=== PATIENT | female | born 1985 | race African-American/Black ===

== ENCOUNTER → 2016-06-17 | Outpatient (CLI) | payer OTHER ==
[~2016-06-17] MED LIST: LANS15CA PO; PREN1TAB26 PO
--- NOTE | 2016-06-17 11:00 | RAD ---
Chest, 2 views, 06/17/2016: History: Chest pain, URI Comparison is made to a study from 05/16/2011. The heart size and pulmonary vascularity are normal. There is a calcified granuloma in the right lung. No acute infiltrates are seen. There is no evidence of pleural fluid. IMPRESSION: No acute cardiopulmonary abnormality is detected.
== END | disposition home or self-care (01) ==
LOC: RAD 10:26
PROVIDERS: ATTEND Surgery
DX: R07.9 Chest pain, unspecified (principal)
CPT/HCPCS: 71020

== ENCOUNTER → 2018-04-15 | Outpatient (CLI) | payer OTHER ==
--- NOTE | 2018-04-15 09:39 | KCIC ---
EXAM: MRI RIGHT KNEE DATE: 04/15/2018 8:45 AM CLINICAL INDICATION: Right knee pain. Swelling and popping sensation for 7 years. COMPARISON: Knee radiographs 10/08/2007 TECHNIQUE: Multiplanar, multisequence MR imaging of the right knee was performed without IV contrast. FINDINGS: No significant knee joint effusion. No Goode's cyst is seen although a synovial cyst is seen arising from the posterior joint line measuring 1.7 x 0.7 cm immediately subjacent to the popliteal vessels. Regions of near full-thickness chondral thinning at the central weightbearing surface of the medial femoral condyle. Suspected intermittent full-thickness fissuring. Mild thinning of the lateral compartment cartilage without discrete full-thickness fissuring. Intermittent chondral thinning of the lateral patellar facet without discrete full-thickness defect. The ACL and PCL are intact. The MCL, fibular collateral ligament, biceps femoris and IT band are intact. The popliteus tendon is normal in signal and morphology, intact. Neutral patellar tracking. Extensor mechanism is intact. Medial meniscus: Although no discrete meniscal tear is identified, there is a complex multiseptated parameniscal cyst measuring 1.3 x 1 cm along the posterior horn and root of the medial meniscus. Occult meniscal tear is not excluded. Lateral meniscus: Intact No evidence of fracture or AVN. Tricompartmental osteophytes are seen. IMPRESSION: 1. A small synovial cyst is seen arising from the posterior joint line immediately subjacent to the popliteal vessels measuring 1.7 cm. 2. Although no medial or lateral meniscal tear is identified, a small multiseptated parameniscal cyst is seen posteriorly along the posterior horn and root of the medial meniscus which may suggest occult meniscal tear. Alternatively a soft tissue ganglion arising from the posterior joint line/capsular may have similar appearance. 3. 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 Electronically signed by: Jason Joshi MD (04/15/2018 9:35 AM) [facility]
== END | disposition home or self-care (01) ==
LOC: KCIC MRI 08:21
PROVIDERS: ATTEND Orthopaedic Surgery
DX: M71.38 Other bursal cyst, other site (principal); M94.261 Chondromalacia, right knee; M25.761 Osteophyte, right knee
CPT/HCPCS: 73721

== ENCOUNTER 2019-02-13 03:56 | Emergency (ER) | payer MEDICAID, OTHER ==
[~2019-02-13] VITALS: Ht 167.6 cm; Wt 129.3 kg
[2019-02-13 04:26] LABS: BILIRUBIN,URINE NEGATIVE (NEG); CLARITY,URINE CLEAR; COLOR,URINE YELLOW; NITRITE,URINE NEGATIVE (NEG); PROTEIN,URINE NEGATIVE (NEG-TRACE)
[2019-02-13] MEDS ORDERED: IV NORMAL SALINE 1000ML BAG 1,000 ML IV SCH (04:30)
[2019-02-13] MEDS ORDERED: DIPHTH,PERTUSS(ACELL),TET TOX 0.5 ML DISP.SYRIN. VAX IM ONE (04:30)
[2019-02-13 04:33] LABS: BARBITURATES NEG (NEG); BENZODIAZEPINES NEG (NEG); CANNABINOIDS NEG (NEG); COCAINE NEG (NEG); METHADONE NEG (NEG); OPIATES NEG (NEG); PHENCYCLIDINE NEG (NEG)
[2019-02-13 04:43] LABS: AMPHETAMINE/METHAMPHETAMINE NEG (NEG)
[2019-02-13 04:47] VITALS: BP 110/58
[2019-02-13 04:48] LABS: BACTERIA,URINE FEW /HPF (0-FEW); SQUAMOUS EPITHELIAL CELL,UR FEW /LPF
[2019-02-13 05:03] LABS: BASO # 0.1 x10^3/uL (0.0-0.2); BASO % 1 % (0-3); EOS # 0.4 x10^3/uL (0.0-0.7); EOS % 5 % (0-3); HEMATOCRIT 40.2 % (36.0-47.0); HEMOGLOBIN 13.7 g/dL (12.0-15.5); LYMPH # 1.6 x10^3/uL (1.0-4.8); LYMPH % 20 % (24-48); MEAN CORPUSCULAR HEMOGLOBIN 29 pg (25-35); MEAN CORPUSCULAR HGB CONC 34 g/dL (31-37); MEAN CORPUSCULAR VOLUME 83 fL (79-100); MONO # 0.5 x10^3/uL (0.0-1.1); MONO % 6 % (0-9); NEUT # 5.6 x10^3/uL (1.8-7.7); NEUT % 69 % (31-73); PLATELET COUNT 279 x10^3/uL (140-400); RED BLOOD COUNT 4.81 x10^6/uL (3.50-5.40); RED CELL DISTRIBUTION WIDTH 14.3 % (11.5-14.5); WHITE BLOOD COUNT 8.1 x10^3/uL (4.0-11.0)
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
[2019-02-13 05:18] LABS: PROTHROMBIN TIME PATIENT 13.7 SEC (11.7-14.0)
[2019-02-13 05:27] LABS: CALCIUM 9.5 mg/dL (8.5-10.1); CREATININE 0.8 mg/dL (0.6-1.0); GFR 98.8; POTASSIUM 3.6 mmol/L (3.5-5.1)
[2019-02-13 05:32] LABS: ALBUMIN 3.6 g/dL (3.4-5.0); DIRECT BILIRUBIN 0.1 mg/dL (0.0-0.2); MAGNESIUM 2.1 mg/dL (1.8-2.4); TOTAL BILIRUBIN 0.2 mg/dL (0.2-1.0); TOTAL PROTEIN 8.6 g/dL (6.4-8.2)
[2019-02-13] MEDS ORDERED: CEPH-264 PO (06:04)
[2019-02-13] MEDS ORDERED: NAPR-683 PO (06:04)
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
== END 2019-02-13 06:35 | disposition home or self-care (01) ==
LOC: ER 03:56
DX: S01.511A Laceration without foreign body of lip, initial encounter (principal); F10.129 Alcohol abuse with intoxication, unspecified; Y90.6 Blood alcohol level of 120-199 mg/100 ml; N39.0 Urinary tract infection, site not specified; E66.01 Morbid (severe) obesity due to excess calories; Z68.42 Body mass index [BMI] 45.0-49.9, adult; Y04.8XXA Assault by other bodily force, initial encounter; Y93.89 Activity, other specified; Y99.8 Other external cause status; Y92.89 Other specified places as the place of occurrence of the external cause
CPT/HCPCS: 12011; 36415; 70450; 70486; 72125; 80048; 80076; 80307; 81001; 81025; 83735; 85025; 85610; 87086; 90471; 90715; 99285; G0480; J7030

== ENCOUNTER 2019-11-09 08:00 | Emergency (ER) | payer MEDICAID ==
[~2019-11-09] VITALS: Ht 165.1 cm; Wt 100.0 kg
[~2019-11-09 08:00] MED LIST changes: +CEPH-264 PO; +NAPR-683 PO
[2019-11-09 08:16] VITALS: BP 141/98
[2019-11-09] MEDS ORDERED: BENZ100C PO (08:27)
--- NOTE | 2019-11-09 08:27 | PHYS DOC ---
Past Medical History Past Medical History: No Pertinent History Smoking Status: Current Every Day Smoker Alcohol Use: Occasionally Drug Use: None General Adult EDM: Chief Complaint: COUGH HPI: HPI: Patient is a 34-year-old female smoker who presents with cough and congestion. She states that her boss sent her home from work because she was coughing. She denies any fever chills or sweats. She states that she is coughing up some white stuff. She has inhalers and prednisone at home that she has not been using. [] Review of Systems: Review of Systems: Constitutional: Denies fever or chills. [] Eyes: Denies change in visual acuity. [] HENT: Denies nasal congestion or sore throat. [] Respiratory: Per HPI [] Cardiovascular: Denies chest pain or edema. [] GI: Denies abdominal pain, nausea, vomiting, bloody stools or diarrhea. [] : Denies dysuria. [] Musculoskeletal: Denies back pain or joint pain. [] Integument: Denies rash. [] Neurologic: Denies headache, focal weakness or sensory changes. [] Endocrine: Denies polyuria or polydipsia. [] Lymphatic: Denies swollen glands. [] Psychiatric: Denies depression or anxiety. [] Heart Score: Risk Factors: Risk Factors: DM, Current or recent (<one month) smoker, HTN, HLP, family history of CAD, obesity. Risk Scores: Score 0 - 3: 2.5% MACE over next 6 weeks - Discharge Home Score 4 - 6: 20.3% MACE over next 6 weeks - Admit for Clinical Observation Score 7 - 10: 72.7% MACE over next 6 weeks - Early Invasive Strategies Allergies: Allergies: Allergies Coded Allergies Type Severity Reaction Last Updated Verified No Known Drug Allergies 04/26/13 No Physical Exam: PE: Constitutional: Well developed, well nourished, no acute distress, non-toxic appearance. [] HENT: Normocephalic, atraumatic, bilateral external ears normal, oropharynx moist, no oral exudates, nose normal. [] Eyes: PERRLA, EOMI, conjunctiva normal, no discharge. [] Neck: Normal range of motion, no tenderness, supple, no stridor. [] Cardiovascular:Heart rate regular rhythm, no murmur [] Lungs & Thorax: Bilateral breath sounds clear to auscultation [] Abdomen: Bowel sounds normal, soft, no tenderness, no masses, no pulsatile masses. [] Skin: Warm, dry, no erythema, no rash. [] Back: No tenderness, no CVA tenderness. [] Extremities: No tenderness, no cyanosis, no clubbing, ROM intact, no edema. [] Neurologic: Alert and oriented X 3, normal motor function, normal sensory function, no focal deficits noted. [] Psychologic: Affect normal, judgement normal, mood normal. [] EKG: EKG: [] Radiology/Procedures: Radiology/Procedures: [] Course & Med Decision Making: Course & Med Decision Making Pertinent Labs and Imaging studies reviewed. (See chart for details) [] Dragon Disclaimer: Dragon Disclaimer: This electronic medical record was generated, in whole or in part, using a voice recognition dictation system. Departure Departure Impression: Primary Impression: Viral URI with cough Disposition: 01 HOME, SELF-CARE Condition: STABLE Referrals: UNKNOWN PCP NAME (PCP) Patient Instructions: Upper Respiratory Infection, Adult Additional Instructions: Take your albuterol inhaler and prednisone as previously prescribed Scripts Benzonatate (TESSALON PERLE) 100 Mg Capsule 1 CAP PO TID, #21 CAP Prov: LINDA FAUST DO 11/09/19 Justicifation of Admission Dx: Justifications for Admission: Justification of Admission Dx: LINDA Dao DO Nov 09, 2019 08:27
== END 2019-11-09 08:36 | disposition home or self-care (01) ==
LOC: ER 08:00
DX: J06.9 Acute upper respiratory infection, unspecified (principal); F17.200 Nicotine dependence, unspecified, uncomplicated
CPT/HCPCS: 99283

== ENCOUNTER → 2020-03-13 | Outpatient (CLI) | payer MEDICAID ==
[~2020-03-13] MED LIST changes: +ALBU2.5V8 INH; +BENZ100C PO; +FERR325T14 PO; +IBUP-1027 PO; +OMEP40CA45 PO
--- NOTE | 2020-03-15 09:22 | NUR ---
IP: Informed pt of positive COVID test and need to quarantine for 14 days. Procedure will be cancelled. Pt verbalized understanding.
== END ==
LOC: LAB 13:04
PROVIDERS: ATTEND Obstetrics & Gynecology
DX: U07.1 COVID-19 (principal)
CPT/HCPCS: U0003

== ENCOUNTER 2020-12-06 20:03 | Emergency (ER) | payer MEDICAID ==
[~2020-12-06] VITALS: Ht 167.6 cm; Wt 120.0 kg
[~2020-12-06 20:03] MED LIST changes: -OMEP40CA45 PO; +OMEP40CA7 PO
[2020-12-06 21:57] VITALS: BP 127/71
[2020-12-06] MEDS ORDERED: ALBUTEROL SULFATE 2.5 MG/3 ML NEBU. NEB ONE (22:15)
[2020-12-06] MEDS ORDERED: DEXAMETHASONE 4 MG TABLET PO ONE (22:15)
--- NOTE | 2020-12-06 22:20 | PHYS DOC ---
Past Medical History Past Medical History: No Pertinent History Past Surgical History: Hysterectomy Additional Past Surgical Histo: R hand, L salpigooophoerectomy Smoking Status: Current Every Day Smoker Alcohol Use: Occasionally Drug Use: None General Adult EDM: Chief Complaint: MULTIPLE COMPLAINTS HPI: HPI: Patient is a 35 year old female who presents with 1 day of nausea, vomiting, diarrhea, fever, shortness of breath and body aches. She does have a history of asthma and is a smoker. She also has a history of a hysterectomy. She has had both of her [employer] vaccines since September. She states she has plenty of inhaler and nebulized treatments at home and does not need a prescription. Patient denies chest pain, dizziness, headache, vision change, numbness or tingling, focal weakness, cough. She denies any pain at this time. Review of Systems: Review of Systems: Constitutional: + fever or chills. [] Eyes: Denies change in visual acuity. [] HENT: Denies nasal congestion or sore throat. [] Respiratory: + cough or +shortness of breath. [] Cardiovascular: Denies chest pain or edema. [] GI: Denies abdominal pain, +nausea, +vomiting, denies bloody stools or +diarrhea. [] : Denies dysuria. [] Musculoskeletal: Denies back pain or joint pain. [] Integument: Denies rash. [] Neurologic: Denies headache, focal weakness or sensory changes. [] Endocrine: Denies polyuria or polydipsia. [] Lymphatic: Denies swollen glands. [] Psychiatric: Denies depression or anxiety. [] Heart Score: C/O Chest Pain: No Risk Factors: Risk Factors: DM, Current or recent (<one month) smoker, HTN, HLP, family history of CAD, obesity. Risk Scores: Score 0 - 3: 2.5% MACE over next 6 weeks - Discharge Home Score 4 - 6: 20.3% MACE over next 6 weeks - Admit for Clinical Observation Score 7 - 10: 72.7% MACE over next 6 weeks - Early Invasive Strategies Current Medications: Current Medications Medications (Trade) Dose Ordered Sig/Jorge Alberto Start Time Stop Time Status Last Admin Dose Admin Dexamethasone (Decadron) 10 mg 1X ONCE 12/06/20 22:15 12/06/20 22:16 Allergies: Allergies: Allergies Coded Allergies Type Severity Reaction Last Updated Verified No Known Drug Allergies 03/14/20 No Physical Exam: PE: Constitutional: Well developed, well nourished, no acute distress, non-toxic appearance. [] HENT: Normocephalic, atraumatic, bilateral external ears normal, oropharynx moist, no oral exudates, nose normal. [] Eyes: PERRLA, EOMI, conjunctiva normal, no discharge. [] Neck: Normal range of motion, no tenderness, supple, no stridor. [] Cardiovascular:Heart rate regular rhythm, no murmur [] Lungs & Thorax: Bilateral upper breath sounds clear and lower diminished to auscultation [] Abdomen: Bowel sounds normal, soft, no tenderness, no masses, no pulsatile masses. [] Skin: Warm, dry, no erythema, no rash. [] Back: No tenderness, no CVA tenderness. [] Extremities: No tenderness, no cyanosis, no clubbing, ROM intact, no edema. [] Neurologic: Alert and oriented X 3, normal motor function, normal sensory function, no focal deficits noted. [] Psychologic: Affect normal, judgement normal, mood normal. [] Current Patient Data: Vital Signs: Vital Signs Date Time Temp Pulse Resp B/P (MAP) Pulse Ox O2 Delivery O2 Flow Rate FiO2 12/06/20 21:57 98.9 92 12 127/71 (112) 98 Room Air 98.9 EKG: EKG: [] Radiology/Procedures: Radiology/Procedures: [] Impression: [id number] [place] [address] IMAGING REPORT Signed PATIENT: KATINA MANN ACCOUNT: [id number] : 1985 LOCATION: ER AGE: 35 SEX: F EXAM STATUS: REG ER ORD. PHYSICIAN: NAHUM ORTIZ APRN REASON: soa, fever PROCEDURE: PORTABLE CHEST 1V AP chest. HISTORY: Short of air, fever AP view was taken of the chest. Heart is normal in size. There is no effusion. There are no acute infiltrates. IMPRESSION: 1. No acute infiltrates. Electronically signed by: Jaxon Nguyen MD (12/06/2020 10:19 PM) [facility] DICTATED and SIGNED BY: JAXON NGUYEN MD DATE: 12/06/20 [id number] 0 Course & Med Decision Making: Course & Med Decision Making Pertinent Labs and Imaging studies reviewed. (See chart for details) COVID-19 CRITERIA: The patient was evaluated during the global COVID-19 pandemic, and that diagnosis was suspected/considered upon their initial presentation. Their evaluation, treatment and testing was consistent with current guidelines for patients who present with complaints or symptoms that may be related to COVID-19. See HPI. Alert and oriented x4. Ambulatory steady gait. Speaks in full clear sentences. Lungs are clear in upper lobes and diminished in lower lobes. She is in no respiratory distress. Vital signs within normal limits. Skin pink warm and dry. Patient is given dexamethasone in the ED. She is also given a breathing treatment. 2300: Patient signed out to Dr Avina [] Ab Disclaimer: Ab Disclaimer: This electronic medical record was generated, in whole or in part, using a voice recognition dictation system. Departure Departure Impression: Primary Impression: Shortness of breath Disposition: 01 HOME / SELF CARE / HOMELESS Condition: STABLE Referrals: REFUGIO HARRELL-C (PCP) Patient Instructions: Asthma, Adult, Asthma, F.L.A.R.E. Additional Instructions: Follow-up with your primary care provider soon as possible. Drink plenty of fluids. Take ibuprofen or Tylenol for any pain or fever. Rest. If you begin to have severe shortness of breath or chest pain no return to the emergency room. Scripts Methylprednisolone (MEDROL) 4 Mg Tab.ds.pk 1 PKG PO UD, #1 PKG Prov: NAHUM ORTIZ [employer] 12/06/20 COVID-19 Patient Risks: Age 65 or older: No Sign of co-morbidity: Yes Exp to person + for COVID: No Exp to PUI: No Travel from affected area: No Lower respiratory symptoms: Yes Fever: Yes Other: Yes (N/V/D) PPE Use: Full PPE with N95 mask or PAPR: Yes NAHUM ORTIZ [employer] Dec 06, 2020 22:20
--- NOTE | 2020-12-06 22:22 | RAD ---
AP chest. HISTORY: Short of air, fever AP view was taken of the chest. Heart is normal in size. There is no effusion. There are no acute inf iltrates. IMPRESSION: 1. No acute infiltrates. Electronically signed by: Jaxon Nguyen MD (12/06/2020 10:19 PM) [facility]
[2020-12-06] MEDS ORDERED: METH4TAB2 PO (22:47)
[2020-12-06 23:21] LABS: BILIRUBIN,URINE NEGATIVE (NEG); CLARITY,URINE CLEAR; COLOR,URINE AMBER; NITRITE,URINE NEGATIVE (NEG); PH,URINE 6.5 (<5.0-8.0); PROTEIN,URINE NEGATIVE (NEG-TRACE)
[2020-12-06 23:29] LABS: RBC,URINE OCC /HPF (0-2); WBC,URINE OCC /HPF (0-4)
[2020-12-06 23:30] LABS: BACTERIA,URINE 0 /HPF (0-FEW)
--- NOTE | 2020-12-07 18:00 | NUR ---
IP: Informed pt of negative covid test. Pt verbalized understanding.
== END 2020-12-06 23:58 | disposition home or self-care (01) ==
LOC: ER 20:03
DX: R06.02 Shortness of breath (principal); Z20.822 Contact with and (suspected) exposure to COVID-19; R11.2 Nausea with vomiting, unspecified; R19.7 Diarrhea, unspecified; R50.9 Fever, unspecified; J45.909 Unspecified asthma, uncomplicated; F17.200 Nicotine dependence, unspecified, uncomplicated; Z90.710 Acquired absence of both cervix and uterus
CPT/HCPCS: 71045; 81001; 87426; 94640; 99284; J7613; U0003; U0005

== ENCOUNTER 2021-03-20 19:56 | Emergency (ER) | payer MEDICAID, OTHER ==
[~2021-03-20] VITALS: Ht 165.1 cm; Wt 107.0 kg
[~2021-03-20 19:56] MED LIST changes: +METH4TAB2 PO
[2021-03-20] MEDS ORDERED: MORPHINE SULFATE 10 MG/ML VIAL. IM ONE (21:30)
[2021-03-20] MEDS ORDERED: ONDANSETRON ODT 4 MG TAB.RAPDIS. PO ONE (21:30)
--- NOTE | 2021-03-20 22:10 | RAD ---
Exam: CT of abdomen and pelvis without contrast INDICATION: Abdominal pain, umbilical hernia TECHNIQUE: Sequential axial images through the abdomen and pelvis obtained without IV contrast. Sagit jah and coronal reformatted images were reconstructed from the axial data and reviewed. Exposure: One or more of the following in the visualized dose reduction techniques were utilized for this examination: 1. Automated exposure control 2. Adjustment of the MA and/or KV according to patient size 3. Use of iterative of reconstructive technique Comparisons: None FINDINGS: Heart size is normal. No pericardial effusion. Visualized lung bases are clear. No pleural effusion. Evaluation of solid organs limited secondary to noncontrast technique. Liver, spleen, pancreas, gallbladder and adrenals are unremarkable. No perinephric inflammation or hydronephrosis. No renal or ureteral calculi are identified. Bladder is partially distended and not well evaluated. Uterus is absent. No abnormal adnexal mass. Large and small bowel are unremarkable. Appendix is normal. No free intra-abdominal air fluid. No obs truction. Abdominal aorta has a normal course and caliber. No enlarged intra-abdominal lymph nodes are identified. No suspicious osseous lesions or acute fractures. Fat-containing umbilical hernia which measures 4.5 cm in diameter with a 1.8 cm opening at the umbilicus. IMPRESSION: Fat-containing umbilical hernia. No herniated bowel or evidence for obstruction. Electronically signed by: Tari Murillo MD (03/20/2021 10:07 PM) [facility]
[2021-03-20] MEDS ORDERED: HYDR-2761 PO (23:00)
--- NOTE | 2021-03-20 23:01 | PHYS DOC ---
Past Medical History Past Medical History: No Pertinent History Additional Past Medical Histor: COVID-19 (03/2020),UMBILLICAL HERNIA Past Surgical History: Hysterectomy Additional Past Surgical Histo: R hand, L salpigooophoerectomy Smoking Status: Never Smoker Alcohol Use: None Drug Use: None General Adult EDM: Chief Complaint: ABDOMINAL PAIN HPI: HPI: Patient is a 36 year old female with a history of abdominal hernia who presents the ED today complaining of 8 out of 10 pain around the umbilicus. Patient states pain has been going on for the whole day. She states she usually has pain to the area but today is worse than normal. Patient describes the pain as throbbing and constant today. She states she was diagnosed with hernia in September. Denies anything relieving her pain. States the pain is exacerbated on touching the abdomen. Reports normal bowel movement today. Review of Systems: Review of Systems: Constitutional: Denies fever or chills. [] GI: Reports pain around the umbilicus, denies nausea, vomiting, bloody stools or diarrhea. [] : Denies dysuria. [] Musculoskeletal: Denies back pain or joint pain. [] Integument: Denies rash. [] Neurologic: Denies headache, focal weakness or sensory changes. [] Psychiatric: Denies depression or anxiety. [] Heart Score: C/O Chest Pain: N/A Risk Factors: Risk Factors: DM, Current or recent (<one month) smoker, HTN, HLP, family history of CAD, obesity. Risk Scores: Score 0 - 3: 2.5% MACE over next 6 weeks - Discharge Home Score 4 - 6: 20.3% MACE over next 6 weeks - Admit for Clinical Observation Score 7 - 10: 72.7% MACE over next 6 weeks - Early Invasive Strategies Current Medications: Current Medications Medications (Trade) Dose Ordered Sig/[facility] Start Time Stop Time Status Last Admin Dose Admin Morphine Sulfate (Morphine Sulfate) 5 mg 1X ONCE 03/20/21 21:30 03/20/21 21:31 DC 03/20/21 22:04 5 MG Ondansetron HCl (Zofran Odt) 4 mg 1X ONCE 03/20/21 21:30 03/20/21 21:31 DC 03/20/21 22:03 4 MG Allergies: Allergies: Allergies Coded Allergies Type Severity Reaction Last Updated Verified No Known Drug Allergies 03/14/20 No Physical Exam: PE: Constitutional: Well developed, well nourished, no acute distress, non-toxic appearance. [] Abdomen: Obese abdomen. Tenderness around the umbilicus. Bowel sounds normal, soft, no masses, no pulsatile masses. [] Skin: Warm, dry, no erythema, no rash. [] Back: No tenderness, no CVA tenderness. [] Extremities: No tenderness, no cyanosis, no clubbing, ROM intact, no edema. [] Neurologic: Alert and oriented X 3, normal motor function, normal sensory function, no focal deficits noted. [] Psychologic: Affect normal, judgement normal, mood normal. [] Current Patient Data: Vital Signs: Vital Signs Date Time Temp Pulse Resp B/P (MAP) Pulse Ox O2 Delivery O2 Flow Rate FiO2 03/20/21 22:04 18 98 Room Air 03/20/21 21:10 97.7 74 122/56 (78) 97.7 EKG: EKG: [] Radiology/Procedures: Radiology/Procedures: []PROCEDURE: CT ABDOMEN PELVIS WO CONTRAST Exam: CT of abdomen and pelvis without contrast INDICATION: Abdominal pain, umbilical hernia TECHNIQUE: Sequential axial images through the abdomen and pelvis obtained without IV contrast. Sagittal and coronal reformatted images were reconstructed from the axial data and reviewed. Exposure: One or more of the following in the visualized dose reduction techniques were utilized for this examination: 1. Automated exposure control 2. Adjustment of the MA and/or KV according to patient size 3. Use of iterative of reconstructive technique Comparisons: None FINDINGS: Heart size is normal. No pericardial effusion. Visualized lung bases are clear. No pleural effusion. Evaluation of solid organs limited secondary to noncontrast technique. Liver, spleen, pancreas, gallbladder and adrenals are unremarkable. No perinephric inflammation or hydronephrosis. No renal or ureteral calculi are identified. Bladder is partially distended and not well evaluated. Uterus is absent. No abnormal adnexal mass. Large and small bowel are unremarkable. Appendix is normal. No free intra- abdominal air fluid. No obstruction. Abdominal aorta has a normal course and caliber. No enlarged intra-abdominal lymph nodes are identified. No suspicious osseous lesions or acute fractures. Fat-containing umbilical niki ia which measures 4.5 cm in diameter with a 1.8 cm opening at the umbilicus. IMPRESSION: Fat-containing umbilical hernia. No herniated bowel or evidence for obstruction. Electronically signed by: Tari Mei MD (03/20/2021 10:07 PM) [facility] DICTATED and SIGNED BY: TARI MEI MD DATE: 03/20/21 [id number] 0 Course & Med Decision Making: Course & Med Decision Making Pertinent Labs and Imaging studies reviewed. (See chart for details) This is a 36-year-old female patient presenting to the ED today with pain around her umbilicus, history of umbilical hernia. CT of the abdomen and pelvis is negative for any acute findings, noted for non incarcerated umbilical hernia. Discharge to home. Follow-up with general surgery. Dragon Disclaimer: Dragon Disclaimer: This electronic medical record was generated, in whole or in part, using a voice recognition dictation system. Departure Departure Impression: Primary Impression: Umbilical hernia Qualified Codes: K42.9 - Umbilical hernia without obstruction or gangrene Disposition: HOME / SELF CARE / HOMELESS Condition: STABLE Referrals: REFUGIO HARRELL EVALUATOR-C (PCP) CHRISTINA ESPINOZA MD Please follow-up with your own doctor and the provided general surgeon as soon as you can Patient Instructions: Hernia Additional Instructions: You have an umbilical hernia that is not incarcerated. We encourage you to follow-up with the provided general surgeon as soon as you can. Scripts Hydrocodone Bit/Acetaminophen (HYDROCODONE-APAP 5-325 ) 1 Tab Tablet 1 TAB PO PRN Q6HRS PRN for PAIN, #14 TAB 0 Refills Prov: ALLIE FOWLER APRN 03/20/21 ALLIE FOWLER APRN Mar 20, 2021 23:00
[2021-03-20 23:11] VITALS: BP 108/67
== END 2021-03-20 23:19 | disposition home or self-care (01) ==
LOC: ER 19:56
DX: K42.9 Umbilical hernia without obstruction or gangrene (principal)
CPT/HCPCS: 74176; 96372; 99285; J2270

== ENCOUNTER 2021-04-18 11:33 | Day surgery (SDC) | payer OTHER, MEDICAID ==
[~2021-04-18] VITALS: Ht 166.4 cm; Wt 108.0 kg
[~2021-04-18 11:33] MED LIST changes: +HYDR-2761 PO; +IV RINGERS,LACTATED 1000ML 1,000 ML IV SCH; +PROCHLORPERAZINE 10 MG/2 ML VIAL. IVP PRN; +fentaNYL PF VIAL 100 MCG/2 ML VIAL IVP PRN
[2021-04-18 12:05] VITALS: BP 101/66
[2021-04-18] MEDS ORDERED: DEXAMETHASONE SOD PHOS 4 MG/ML VIAL ONE (12:13)
[2021-04-18] MEDS ORDERED: ONDANSETRON PF 4 MG/2 ML VIAL. ONE (12:13)
[2021-04-18] MEDS ORDERED: PROPOFOL 10 MG/ML (20ML) VIAL. IV ONE (12:13)
[2021-04-18] MEDS ORDERED: ROCURONIUM 100 MG/10 ML VIAL. ONE (12:14)
[2021-04-18] MEDS ORDERED: fentaNYL PF VIAL 100 MCG/2 ML VIAL ONE ×2 (12:14→15:43)
[2021-04-18] MEDS ORDERED: MIDAZOLAM HCL/PF 2 MG/2 ML VIAL. ONE (12:15)
[2021-04-18] MEDS ORDERED: LIDOCAINE 2% PF 5 ML VIAL. ONE (12:23)
[2021-04-18] MEDS ORDERED: SUCCINYLCHOLINE 200 MG/10 ML VIAL. ONE (12:24)
[2021-04-18] MEDS ORDERED: DEXAMETHASONE SOD PHOS 20 MG/5 ML VIAL. ONE (12:36)
[2021-04-18] MEDS ORDERED: KETOROLAC 30 MG/ML VIAL. ONE (13:59)
[2021-04-18] MEDS ORDERED: HYDROmorphone 2 MG/ML VIAL ONE ×2 (14:17→16:06)
[2021-04-18] MEDS ORDERED: NEOSTIGMINE METHYLSULFATE 5 MG/5 ML SYRINGE. ONE (14:55)
[2021-04-18] MEDS ORDERED: GLYCOPYRROLATE 1 MG/5 ML VIAL. ONE (14:56)
[2021-04-18] MEDS ORDERED: OXYC-325 PO (15:21)
--- NOTE | 2021-04-18 15:23 | DISCH ---
DISCHARGE INSTRUCTIONS Condition on Discharge Condition on Discharge: Stable Activity After Discharge Activity Instructions for Disc: Other, see below (no lifting over 20 lbs X 6 weeks) Diet after Discharge Diet after Discharge: Regular Wound Incision Care Wound/Incision Care: Other, see below (keep dressing clean and dry X 72 hours, may then remove and shower) Follow-Up Follow up with: Dr Vital in office in 2 weeks, call for appointment [phone] ANUJA VITAL MD Apr 18, 2021 15:23
--- NOTE | 2021-04-18 15:27 | PDOC4 ---
Operative Note Operative Note Operative Note: Preoperative Diagnosis: Ventral hernia Postoperative Diagnosis: Same Procedure: Ventral hernia with mesh Surgeon: Darrel Site Safety Representative: ASAEL Castillo Jacob Wiepen MS4 Anesthesia: General EBL: 20 mL Specimen: None Drains: None Complications: None Indication: The patient is a 36-year-old female who is referred with a ventral hernia. She was offered surgical repair. The risks of surgery were discussed which include bleeding, infection, recurrence, pain, visceral injury, anesthetic risk, mesh reaction, potential need for additional surgery procedure. She understands and would like to proceed. Description: The patient was taken the operating room and placed supine on the operating table. General anesthesia was performed. The abdomen was prepped with ChloraPrep and draped with sterile towels, sheets, and an Ioban. A curved infraumbilical incision was made in the skin with a scalpel. Cautery dissection was carried down to the fascia. The umbilical tissue was elevated off the fascia exposing a moderate-sized hernia defect. This appeared to be related to a prior ventral incision from a laparoscopic trocar. There was some adherent omentum to the hernia sac which had to be mobilized. There was an adjacent slit defect also which was included with the main hernia by dividing the fascial b ridge. A large Ventralex ST mesh was then placed intraperitoneally and held up against the abdominal wall. The mesh was sutured to the abdominal wall with 0 Prolene's placed at the 12, 3, 6, 9:00 positions. The fascial edges were approximated over the mesh with 0 Prolene. The umbilicus was secured back to the fascia with 0 Vicryl. The subcutaneous tissue was closed with 3-0 Vicryl. The skin was closed with 4-0 Monocryl and infiltrated with half percent Marcaine with epinephrine. Steri-Strips and a sterile dressing were applied. The patient tolerated the procedure well and was sent to the recovery room in stable condition. At the end of the case all counts were correct. ANUJA VITAL MD Apr 18, 2021 15:27
[2021-04-18] MEDS ORDERED: MORPHINE SULFATE 2 MG/ML INJ. ONE (15:43)
[2021-04-18] MEDS: MORPHINE SULFATE 2 MG/ML INJ. IVP PRN ×2 (15:47→15:56)
[2021-04-18] MEDS: fentaNYL PF VIAL 100 MCG/2 ML VIAL IVP PRN ×2 (15:47→15:55)
[2021-04-18] MEDS ORDERED: oxyCODONE/APAP 5/325 1 TAB TABLET PO ONE ×2 (16:00)
[2021-04-18] MEDS ORDERED: PROCHLORPERAZINE 10 MG/2 ML VIAL. ONE (16:06)
[2021-04-18] MEDS: HYDROmorphone 2 MG/ML VIAL IVP PRN ×3 (16:10→16:30)
[2021-04-18 16:55] VITALS: BP 107/61
== END 2021-04-18 17:25 | disposition home or self-care (01) ==
LOC: SURG 11:33
PROVIDERS: ATTEND Surgery
DX: K43.9 Ventral hernia without obstruction or gangrene (principal); E66.9 Obesity, unspecified; J45.909 Unspecified asthma, uncomplicated; K21.9 Gastro-esophageal reflux disease without esophagitis; D64.9 Anemia, unspecified; F17.210 Nicotine dependence, cigarettes, uncomplicated; Z90.710 Acquired absence of both cervix and uterus; Z98.890 Other specified postprocedural states; Z79.899 Other long term (current) drug therapy
CPT/HCPCS: 49560; 49568; A4364; A4930; A6402; C1781; J0330; J0690; J0780; J1100; J1170; J1885; J2250; J2270; J2405; J2704; J2710; J3010; J3490; A4452

== ENCOUNTER 2021-09-04 22:35 | Inpatient (IN) | payer MEDICAID, OTHER ==
[~2021-09-04] VITALS: Ht 165.1 cm; Wt 107.2 kg
[~2021-09-04 22:35] MED LIST changes: -IV RINGERS,LACTATED 1000ML 1,000 ML IV SCH; +OXYC-325 PO; -PROCHLORPERAZINE 10 MG/2 ML VIAL. IVP PRN; -fentaNYL PF VIAL 100 MCG/2 ML VIAL IVP PRN
[2021-09-04] MEDS ORDERED: IV NORMAL SALINE 1000ML BAG 1,000 ML IV ONE (23:30)
[2021-09-04] MEDS ORDERED: ONDANSETRON PF 4 MG/2 ML VIAL. IVP ONE (23:30)
[2021-09-04] MEDS ORDERED: fentaNYL PF VIAL 100 MCG/2 ML VIAL IVP ONE (23:30)
[2021-09-04 23:52] LABS: BASO # 0.1 x10^3/uL (0.0-0.2); BASO % 1 % (0-3); EOS # 0.4 x10^3/uL (0.0-0.7); EOS % 5 % (0-3); HEMATOCRIT 38.7 % (36.0-47.0); HEMOGLOBIN 13.3 g/dL (12.0-15.5); LYMPH # 2.3 x10^3/uL (1.0-4.8); LYMPH % 25 % (24-48); MEAN CORPUSCULAR HEMOGLOBIN 27 pg (25-35); MEAN CORPUSCULAR HGB CONC 34 g/dL (31-37); MEAN CORPUSCULAR VOLUME 79 fL (79-100); MONO # 0.6 x10^3/uL (0.0-1.1); MONO % 7 % (0-9); NEUT # 5.6 x10^3/uL (1.8-7.7); NEUT % 62 % (31-73); PLATELET COUNT 266 x10^3/uL (140-400); RED BLOOD COUNT 4.88 x10^6/uL (3.50-5.40); RED CELL DISTRIBUTION WIDTH 15.1 % (11.5-14.5)
--- NOTE | 2021-09-04 23:57 | RAD ---
EXAM: ULTRASOUND ABDOMEN LIMITED CLINICAL HISTORY: Gallstones. Retrocardiac abdominal pain. COMPARISON: CT abdomen March 20, 2021 Findings: Limited visualization of the pancreas, aorta and IVC due to bowel gas shadowing. The visual ized segments of the structures are normal. Normal liver echogenicity isoechoic to renal parenchyma. No liver mass. Hepatopedal portal vein blood flow. There may be hepatomegaly the right hepatic lobe has a length of 20.9 cm. Nonmobile gallstone at the gallbladder neck. Gallbladder wall is mildly thickened measuring 0.4 cm. There is a positive s onographic Bacon's sign documented by the broadloom weaver. No biliary ductal dilation the common bile du ct diameter is 0.5 cm. Right renal length 12.5 cm. No mass or hydronephrosis of the right kidney of the previously noted lef t kidney were not evaluated. IMPRESSION: Fixed gallstone in the gallbladder neck. Gallbladder wall is mildly thickened and there i s a positive sonographic Bacon's sign, raising suspicion of acute calculus cholecystitis. No biliary ductal dilation. See above. Electronically signed by: Darron Hinojosa MD (09/04/2021 11:55 PM) [facility]
[2021-09-04 23:59] LABS: CALCIUM 8.8 mg/dL (8.5-10.1); CREATININE 0.8 mg/dL (0.6-1.0); GFR 97.1; POTASSIUM 3.7 mmol/L (3.5-5.1)
--- NOTE | 2021-09-05 | PHYS DOC ---
Past Medical History Past Medical History: No Pertinent History Additional Past Medical Histor: COVID-19 (03/2020),UMBILLICAL HERNIA Past Surgical History: Hysterectomy Additional Past Surgical Histo: R hand, L salpigooophoerectomy Smoking Status: Current Every Day Smoker Alcohol Use: None Drug Use: None General Adult EDM: Chief Complaint: ABDOMINAL PAIN HPI: HPI: Patient is a 36 year old female with a history of gallstones presenting to the ED today complaining of moderate epigastric abdominal pain, symptoms have been going on since this evening. Patient denies any nausea, vomiting, diarrhea. States the pain has been constant since onset. Denies any fever Review of Systems: Review of Systems: Constitutional: Denies fever or chills. [] Eyes: Denies change in visual acuity. [] HENT: Denies nasal congestion or sore throat. [] Respiratory: Denies cough or shortness of breath. [] Cardiovascular: Denies chest pain or edema. [] GI: Reports epigastric abdominal pain, denies nausea, vomiting, bloody stools or diarrhea. [] : Denies dysuria. [] Musculoskeletal: Denies back pain or joint pain. [] Integument: Denies rash. [] Neurologic: Denies headache, focal weakness or sensory changes. [] Psychiatric: Denies depression or anxiety. [] Heart Score: C/O Chest Pain: N/A Risk Factors: Risk Factors: DM, Current or recent (<one month) smoker, HTN, HLP, family history of CAD, obesity. Risk Scores: Score 0 - 3: 2.5% MACE over next 6 weeks - Discharge Home Score 4 - 6: 20.3% MACE over next 6 weeks - Admit for Clinical Observation Score 7 - 10: 72.7% MACE over next 6 weeks - Early Invasive Strategies Current Medications: Current Medications Medications (Trade) Dose Ordered Sig/Jorge Alberto Start Time Stop Time Status Last Admin Dose Admin Fentanyl Citrate (Fentanyl 2ml Vial) 50 mcg 1X ONCE 09/04/21 23:30 09/04/21 23:31 DC Ondansetron HCl (Zofran) 4 mg 1X ONCE 09/04/21 23:30 09/04/21 23:31 DC Sodium Chloride 1,000 ml @ 1,000 mls/hr 1X ONCE 09/04/21 23:30 09/05/21 00:29 Allergies: Allergies: Allergies Coded Allergies Type Severity Reaction Last Updated Verified No Known Drug Allergies 04/18/21 No Physical Exam: PE: Constitutional: Well developed, well nourished, no acute distress, non-toxic appearance. [] HENT: Normocephalic, atraumatic, bilateral external ears normal, oropharynx moist, no oral exudates, nose normal. [] Eyes: PERRLA, EOMI, conjunctiva normal, no discharge. [] Neck: Normal range of motion, no tenderness, supple, no stridor. [] Cardiovascular:Heart rate regular rhythm, no murmur [] Lungs & Thorax: Bilateral breath sounds clear to auscultation [] Abdomen: Rounded abdomen. Bowel sounds normal, soft, moderate tenderness on palpation of the epigastric region as well as right upper quadrant with a positive Bacon sign, no right lower quadrant tenderness, no masses, no pulsatile masses. [] Skin: Warm, dry, no erythema, no rash. [] Back: No tenderness, no CVA tenderness. [] Extremities: No tenderness, no cyanosis, no clubbing, ROM intact, no edema. [] Neurologic: Alert and oriented X 3, normal motor function, normal sensory function, no focal deficits noted. [] Psychologic: Affect normal, judgement normal, mood normal. [] Current Patient Data: Labs: Laboratory Tests Test 09/04/21 23:45 White Blood Count 9.0 x10^3/uL (4.0-11.0) Red Blood Count 4.88 x10^6/uL (3.50-5.40) Hemoglobin 13.3 g/dL (12.0-15.5) Hematocrit 38.7 % (36.0-47.0) Mean Corpuscular Volume 79 fL (79-100) Mean Corpuscular Hemoglobin 27 pg (25-35) Mean Corpuscular Hemoglobin Concent 34 g/dL (31-37) Red Cell Distribution Width 15.1 % (11.5-14.5) H Platelet Count 266 x10^3/uL (140-400) Neutrophils (%) (Auto) 62 % (31-73) Lymphocytes (%) (Auto) 25 % (24-48) Monocytes (%) (Auto) 7 % (0-9) Eosinophils (%) (Auto) 5 % (0-3) H Basophils (%) (Auto) 1 % (0-3) Neutrophils # (Auto) 5.6 x10^3/uL (1.8-7.7) Lymphocytes # (Auto) 2.3 x10^3/uL (1.0-4.8) Monocytes # (Auto) 0.6 x10^3/uL (0.0-1.1) Eosinophils # (Auto) 0.4 x10^3/uL (0.0-0.7) Basophils # (Auto) 0.1 x10^3/uL (0.0-0.2) Laboratory Tests 09/04/21 23:45 EKG: EKG: [] Radiology/Procedures: Radiology/Procedures: []PROCEDURE: ABDOMEN LTD EXAM: ULTRASOUND ABDOMEN LIMITED CLINICAL HISTORY: Gallstones. Retrocardiac abdominal pain. COMPARISON: CT abdomen March 20, 2021 Findings: Limited visualization of the pancreas, aorta and IVC due to bowel gas shadowing. The visualized segments of the structures are normal. Normal liver echogenicity isoechoic to renal parenchyma. No liver mass. Hepatopedal portal vein blood flow. There may be hepatomegaly the right hepatic lobe has a length of 20.9 cm. Nonmobile gallstone at the gallbladder neck. Gallbladder wall is mildly thickened measuring 0.4 cm. There is a positive sonographic Bacon's sign documented by the hide puller. No biliary ductal dilation the common bile duct diameter is 0.5 cm. Right renal length 12.5 cm. No mass or hydronephrosis of the right kidney of the previously noted left kidney were not evaluated. IMPRESSION: Fixed gallstone in the gallbladder neck. Gallbladder wall is mildly thickened and there is a positive sonographic Bacon's sign, raising suspicion of acute calculus cholecystitis. No biliary ductal dilation. See above. Electronically signed by: Heriberto Hinojosa MD (09/04/2021 11:55 PM) [facility] [place] DICTATED and SIGNED BY: HERIBERTO HINOJOSA MD DATE: 09/04/21 6719 Course & Med Decision Making: Course & Med Decision Making Pertinent Labs and Imaging studies reviewed. (See chart for details) This a 36-year-old female patient presented to the ED today with epigastric abdominal pain, symptoms began prior to coming to the ED. CBC, CMP with no acute findings. Right upper quadrant limited ultrasound noted for fixed gallstone in the gallbladder neck. Gallbladder wall is mildly thickened and there is a positive sonographic Bacon's sign, raising suspicion of acute calculus cholecystitis. No biliary ductal dilation. Spoke with Dr. Moya about patient's results Started on antibiotics Admitted under Dr. Ubaldo Berger Disclaimer: Ab Disclaimer: This electronic medical record was generated, in whole or in part, using a voice recognition dictation system. Departure Departure Impression: Primary Impression: Acute cholecystitis Disposition: ADMITTED INPATIENT Condition: STABLE Referrals: GLENN GRIFFITH MD (PCP) ALLIE FOWLER MUSIC DIRECTOR Sep 05, 2021 00:00
[2021-09-05 00:05] LABS: ALBUMIN 3.3 g/dL (3.4-5.0); ALBUMIN/GLOBULIN RATIO 0.7 (1.0-1.7); TOTAL BILIRUBIN 0.2 mg/dL (0.2-1.0)
[2021-09-05] MEDS ORDERED: fentaNYL PF VIAL 100 MCG/2 ML VIAL IVP ONE (01:00)
[2021-09-05] MEDS ORDERED: ONDANSETRON PF 4 MG/2 ML VIAL. IVP PRN ×2 (02:15→08:45)
[2021-09-05] MEDS ORDERED: IV NORMAL SALINE 1000ML BAG 1,000 ML IV ONE (02:30)
[2021-09-05] MEDS ORDERED: PIPERACILLIN/TAZOBACTAM 3.375 GM in IV NORMAL SALINE 50ML 50 ML IV ONE (02:30)
[2021-09-05] MEDS: fentaNYL PF VIAL 100 MCG/2 ML VIAL IVP PRN ×2 (03:11→08:19)
[2021-09-05 04:10] VITALS: BP 105/52
[2021-09-05] MEDS ORDERED: NITR0.3T5 SL (05:30)
[2021-09-05 07:00] VITALS: BP 126/63
--- NOTE | 2021-09-05 07:17 | NUR ---
The patient, KATINA MANN, 36 y/o, F admitted by ENRIQUETA AUGUSTIN MD, for Cholelithiasis was given written information regarding hospital policies, unit procedures and contact persons. Patient alert and oriented x 4. Patient oriented to room, bed, call light and POC. HIPPA code given to Patient and explained importance of giving it to salesperson sewing machines to maintain patient's privacy. Patient verbalized understanding. Valuables were checked and documented Patient stated she sent purse with newman and credit cards home with her daughter..
--- NOTE | 2021-09-05 08:44 | PDOC1 ---
History and Physical Date of Service: DOS: DATE: 09/05/21 TIME: 08:41 Chief Complaint: Chief Complain: Abdominal pain History of Present Illness: HPI: 36 year old female with a history of gallstones presenting to the ED today complaining of moderate epigastric abdominal pain, symptoms have been going on since this evening. Patient denies any nausea, vomiting, diarrhea. States the pain has been constant since onset. Denies any fever Past Medical/Surgical History: PMH/PSH: Past Medical History: COVID-19 (03/2020),UMBILLICAL HERNIA Past Surgical History: Hysterectomy, R hand, L salpigooophoerectomy Allergies: Allergies: Coded Allergies: No Known Drug Allergies (Unverified , 04/18/21) Family History: Family History: Reviewed with no relative findings in the chart Social History: Social History: Smoking Status: Current Every Day Smoker Alcohol Use: None Drug Use: None Current Medications: Current Medications Current Medications Sodium Chloride 1,000 ml @ 1,000 mls/hr 1X ONCE IV Last administered on 09/04/21at 00:08; Start 09/04/21 at 23:30; Stop 09/05/21 at 00:29; Status DC Ondansetron HCl (Zofran) 4 mg 1X ONCE IVP Last administered on 09/05/21at 00:05; Start 09/04/21 at 23:30; Stop 09/04/21 at 23:31; Status DC Fentanyl Citrate (Fentanyl 2ml Vial) 50 mcg 1X ONCE IVP Last administered on 09/05/21at 00:05; Start 09/04/21 at 23:30; Stop 09/04/21 at 23:31; Status DC Fentanyl Citrate (Fentanyl 2ml Vial) 50 mcg 1X ONCE IVP Last administered on 09/05/21at 01:22; Start 09/05/21 at 01:00; Stop 09/05/21 at 01:03; Status DC Ondansetron HCl (Zofran) 4 mg PRN Q8HRS PRN IVP NAUSEA/VOMITING; Start 09/05/21 at 02:15; Stop 09/06/21 at 02:14 Fentanyl Citrate (Fentanyl 2ml Vial) 50 mcg PRN Q1HR PRN IVP PAIN Last administered on 09/05/21at 08:19; Start 09/05/21 at 02:15; Stop 09/06/21 at 02:14 Sodium Chloride 1,000 ml @ 100 mls/hr 1X ONCE IV Last administered on 09/05/21at 04:41; Start 09/05/21 at 02:30; Stop 09/05/21 at 12:29 Piperacillin Sod/ Tazobactam Sod 3.375 gm/Sodium Chloride 50 ml @ 100 mls/hr 1X ONCE IV Last administered on 09/05/21at 04:41; Start 09/05/21 at 02:30; Stop 09/05/21 at 02:59; Status DC Metronidazole 100 ml @ 100 mls/hr 1X ONCE IV Last administered on 09/05/21at 05:31; Start 09/05/21 at 02:30; Stop 09/05/21 at 03:29; Status DC Active Scripts Active Reported Nitroglycerin 0.3 Mg Tab.subl 0.3 Mg SL PRN Q5MIN ROS: Review of Systems Review of System REVIEW OF SYSTEMS: GENERAL: Denies weakness SKIN: No bruising, hair changes or rashes. EYES: No blurred, double or loss of vision. NOSE AND THROAT: No history of nosebleeds, hoarseness or sore throat. HEART: No history of palpitations, chest pain or shortness of breath on exertion. LUNGS: Denies cough, hemoptysis, wheezing or shortness of breath. GASTROINTESTINAL: Positive abdominal pain GENITOURINARY: No history of frequency, urgency, hesitancy or nocturia. NEUROLOGIC: Denies history of numbness, tingling, or tremor. PSYCHIATRIC: No history of panic, anxiety or depression. ENDOCRINE: No history of heat or cold intolerance, polyuria or polydipsia. EXTREMITIES: Denies joint pain, pain on walking or stiffness. Physical Exam: Vital Signs: Vital Signs Date Time Temp Pulse Resp B/P (MAP) Pulse Ox O2 Delivery O2 Flow Rate FiO2 09/05/21 08:19 Room Air 09/05/21 07:00 97.5 54 18 126/63 (84) 96 97.5 Physcial Exam: General: Well developed, well nourished, no acute distress, well appearing HEENT: Pupils equally round and reactive to light, EOMI, no discharge, normal conjunctiva Neck: Supple, no nuchal rigidity, no JVD, trachea midline, no tenderness Cardiac: RRR, no murmurs, no gallops, no rubs Chest/Lungs: CTAB, no wheeze, no rhonchi, no crackles Abdomen: soft, non-distended, no guarding, no peritoneal signs, right upper quadrant epigastric tenderness Back: No tenderness Extremities: no edema, pulses intact, non-tender,capillary refill <3 sec bilateral upper and lower extremities, Neuro: Alert and oriented x 4, no focal deficits, normal speech Labs: Labs: Laboratory Tests Test 09/04/21 23:45 White Blood Count 9.0 x10^3/uL (4.0-11.0) Red Blood Count 4.88 x10^6/uL (3.50-5.40) Hemoglobin 13.3 g/dL (12.0-15.5) Hematocrit 38.7 % (36.0-47.0) Mean Corpuscular Volume 79 fL (79-100) Mean Corpuscular Hemoglobin 27 pg (25-35) Mean Corpuscular Hemoglobin Concent 34 g/dL (31-37) Red Cell Distribution Width 15.1 % (11.5-14.5) Platelet Count 266 x10^3/uL (140-400) Neutrophils (%) (Auto) 62 % (31-73) Lymphocytes (%) (Auto) 25 % (24-48) Monocytes (%) (Auto) 7 % (0-9) Eosinophils (%) (Auto) 5 % (0-3) Basophils (%) (Auto) 1 % (0-3) Neutrophils # (Auto) 5.6 x10^3/uL (1.8-7.7) Lymphocytes # (Auto) 2.3 x10^3/uL (1.0-4.8) Monocytes # (Auto) 0.6 x10^3/uL (0.0-1.1) Eosinophils # (Auto) 0.4 x10^3/uL (0.0-0.7) Basophils # (Auto) 0.1 x10^3/uL (0.0-0.2) Sodium Level 137 mmol/L (136-145) Potassium Level 3.7 mmol/L (3.5-5.1) Chloride Level 103 mmol/L (98-107) Carbon Dioxide Level 26 mmol/L (21-32) Anion Gap 8 (6-14) Blood Urea Nitrogen 17 mg/dL (7-20) Creatinine 0.8 mg/dL (0.6-1.0) Estimated GFR (Cockcroft-Gault) 97.1 BUN/Creatinine Ratio 21 (6-20) Glucose Level 121 mg/dL (70-99) Calcium Level 8.8 mg/dL (8.5-10.1) Total Bilirubin 0.2 mg/dL (0.2-1.0) Aspartate Amino Transf (AST/SGOT) 14 U/L (15-37) Alanine Aminotransferase (ALT/SGPT) 21 U/L (14-59) Alkaline Phosphatase 103 U/L (46-116) Total Protein 8.0 g/dL (6.4-8.2) Albumin 3.3 g/dL (3.4-5.0) Albumin/Globulin Ratio 0.7 (1.0-1.7) Lipase 121 U/L (73-393) Ethyl Alcohol Level < 10 mg/dL (0-10) Laboratory Tests Test 09/04/21 23:45 White Blood Count 9.0 x10^3/uL (4.0-11.0) Red Blood Count 4.88 x10^6/uL (3.50-5.40) Hemoglobin 13.3 g/dL (12.0-15.5) Hematocrit 38.7 % (36.0-47.0) Mean Corpuscular Volume 79 fL (79-100) Mean Corpuscular Hemoglobin 27 pg (25-35) Mean Corpuscular Hemoglobin Concent 34 g/dL (31-37) Red Cell Distribution Width 15.1 % (11.5-14.5) Platelet Count 266 x10^3/uL (140-400) Neutrophils (%) (Auto) 62 % (31-73) Lymphocytes (%) (Auto) 25 % (24-48) Monocytes (%) (Auto) 7 % (0-9) Eosinophils (%) (Auto) 5 % (0-3) Basophils (%) (Auto) 1 % (0-3) Neutrophils # (Auto) 5.6 x10^3/uL (1.8-7.7) Lymphocytes # (Auto) 2.3 x10^3/uL (1.0-4.8) Monocytes # (Auto) 0.6 x10^3/uL (0.0-1.1) Eosinophils # (Auto) 0.4 x10^3/uL (0.0-0.7) Basophils # (Auto) 0.1 x10^3/uL (0.0-0.2) Sodium Level 137 mmol/L (136-145) Potassium Level 3.7 mmol/L (3.5-5.1) Chloride Level 103 mmol/L (98-107) Carbon Dioxide Level 26 mmol/L (21-32) Anion Gap 8 (6-14) Blood Urea Nitrogen 17 mg/dL (7-20) Creatinine 0.8 mg/dL (0.6-1.0) Estimated GFR (Cockcroft-Gault) 97.1 BUN/Creatinine Ratio 21 (6-20) Glucose Level 121 mg/dL (70-99) Calcium Level 8.8 mg/dL (8.5-10.1) Total Bilirubin 0.2 mg/dL (0.2-1.0) Aspartate Amino Transf (AST/SGOT) 14 U/L (15-37) Alanine Aminotransferase (ALT/SGPT) 21 U/L (14-59) Alkaline Phosphatase 103 U/L (46-116) Total Protein 8.0 g/dL (6.4-8.2) Albumin 3.3 g/dL (3.4-5.0) Albumin/Globulin Ratio 0.7 (1.0-1.7) Lipase 121 U/L (73-393) Ethyl Alcohol Level < 10 mg/dL (0-10) Images: Images PROCEDURE: ABDOMEN LTD EXAM: ULTRASOUND ABDOMEN LIMITED CLINICAL HISTORY: Gallstones. Retrocardiac abdominal pain. COMPARISON: CT abdomen March 20, 2021 Findings: Limited visualization of the pancreas, aorta and IVC due to bowel gas shadowing. The visualized segments of the structures are normal. Normal liver echogenicity isoechoic to renal parenchyma. No liver mass. Hepatopedal portal vein blood flow. There may be hepatomegaly the right hepatic lobe has a length of 20.9 cm. Nonmobile gallstone at the gallbladder neck. Gallbladder wall is mildly thickened measuring 0.4 cm. There is a positive sonographic Bacon's sign documented by the comic illustrator. No biliary ductal dilation the common bile duct diameter is 0.5 cm. Right renal length 12.5 cm. No mass or hydronephrosis of the right kidney of the previously noted left kidney were not evaluated. IMPRESSION: Fixed gallstone in the gallbladder neck. Gallbladder wall is mildly thickened and there is a positive sonographic Bacon's sign, raising suspicion of acute calculus cholecystitis. No biliary ductal dilation. See above. Assessment/Plan Assessment/Plan Acute abdominal pain secondary to acute cholecystitis Morbid obesity Admit to hospitalist service for further management General surgery consult NPO Continue IV fluids Continue IV antibiotics Lovenox for DVT prophylaxis Protonix GI prophylaxis ADA diet CODE STATUS full code Discussed with RN and SW Disposition inpatient management as above DPOA: Mother Justifications for Admission Other Justification ENRIQUETA AUGUSTIN MD Sep 05, 2021 08:44
[2021-09-05] MEDS ORDERED: SENNOSIDES 8.6 MG TABLET PO PRN (08:45)
[2021-09-05] MEDS ORDERED: PROCHLORPERAZINE 10 MG/2 ML VIAL. IV PRN (08:45)
[2021-09-05] MEDS ORDERED: DOCUSATE SODIUM 100 MG CAPSULE. PO PRN (08:45)
[2021-09-05] MEDS ORDERED: ZOLPIDEM 5 MG TABLET. PO PRN (08:45)
[2021-09-05] MEDS ORDERED: oxyCODONE/APAP 5/325 1 TAB TABLET PO PRN (08:45)
[2021-09-05] MEDS ORDERED: ACETAMINOPHEN 325 MG TABLET. PO PRN (08:45)
[2021-09-05] MEDS ORDERED: DEXTROSE 50% 25 GM / 50ML DISP.SYRIN. IV PRN (08:45)
[2021-09-05] MEDS ORDERED: diphenhydrAMINE 50 MG/ML VIAL IVP PRN (08:45)
[2021-09-05] MEDS ORDERED: LORazepam 0.5 MG TABLET PO PRN (08:45)
[2021-09-05] MEDS ORDERED: diphenhydrAMINE HCL 25 MG CAPSULE PO PRN ×2 (08:45)
[2021-09-05 11:00] VITALS: BP 109/62
[2021-09-05] MEDS: PIPERACILLIN/TAZOBACTAM 3.375 GM in IV NORMAL SALINE 50ML 50 ML IV SCH ×2 (11:21→17:19)
[2021-09-05] MEDS: ENOXAPARIN 40 MG/0.4 ML SYRINGE. SQ SCH (11:22)
[2021-09-05] MEDS: MORPHINE SULFATE 2 MG/ML INJ. IVP PRN ×2 (11:30→17:19)
--- NOTE | 2021-09-05 12:28 | NUR ---
rapid covid swab sent to lab 1225.
--- NOTE | 2021-09-05 12:58 | PDOC2 ---
CONSULT Date of Consult Date of Consult DATE: 09/05/21 TIME: 12:54 History of Present Illness Reason for Visit: The patient is a 36 year old female who reported to the ER with abdominal pain. The pain began yesterday and was located in the upper mid abdomen with radiation to the back and chest. She reports associated nausea, and the pain occurred after eating at [employer]. She has had prior episodes of similar pain that has resolved spontaneously. The ER evaluation is consistent with calculous cholecystitis. Past Medical History Past Medical History obesity Past Surgical History Past Surgical History Umbilical hernia repair, hysterectomy, carpal tunnel Social History <1 pack per day Drugs: None Current Medications Current Medications Current Medications Sodium Chloride 1,000 ml @ 1,000 mls/hr 1X ONCE IV Last administered on 09/04/21at 00:08; Start 09/04/21 at 23:30; Stop 09/05/21 at 00:29; Status DC Ondansetron HCl (Zofran) 4 mg 1X ONCE IVP Last administered on 09/05/21at 00:05; Start 09/04/21 at 23:30; Stop 09/04/21 at 23:31; Status DC Fentanyl Citrate (Fentanyl 2ml Vial) 50 mcg 1X ONCE IVP Last administered on 09/05/21at 00:05; Start 09/04/21 at 23:30; Stop 09/04/21 at 23:31; Status DC Fentanyl Citrate (Fentanyl 2ml Vial) 50 mcg 1X ONCE IVP Last administered on 09/05/21at 01:22; Start 09/05/21 at 01:00; Stop 09/05/21 at 01:03; Status DC Ondansetron HCl (Zofran) 4 mg PRN Q8HRS PRN IVP NAUSEA/VOMITING; Start 09/05/21 at 02:15; Stop 09/06/21 at 02:14 Fentanyl Citrate (Fentanyl 2ml Vial) 50 mcg PRN Q1HR PRN IVP PAIN Last administered on 09/05/21at 08:19; Start 09/05/21 at 02:15; Stop 09/06/21 at 02:14 Sodium Chloride 1,000 ml @ 100 mls/hr 1X ONCE IV Last administered on 09/05/21at 04:41; Start 09/05/21 at 02:30; Stop 09/05/21 at 12:29; Status DC Piperacillin Sod/ Tazobactam Sod 3.375 gm/Sodium Chloride 50 ml @ 100 mls/hr 1X ONCE IV Last administered on 09/05/21at 04:41; Start 09/05/21 at 02:30; Stop 09/05/21 at 02:59; Status DC Metronidazole 100 ml @ 100 mls/hr 1X ONCE IV Last administered on 09/05/21at 0 5:31; Start 09/05/21 at 02:30; Stop 09/05/21 at 03:29; Status DC Sennosides (Senna) 17.2 mg PRN BID PRN PO CONSTIPATION; Start 09/05/21 at 08:45 Docusate Sodium (Colace) 100 mg PRN DAILY PRN PO HARD STOOLS; Start 09/05/21 at 08:45 Ondansetron HCl (Zofran) 4 mg PRN Q6HRS PRN IVP NAUSEA/VOMITING, 1st CHOICE; Start 09/05/21 at 08:45 Dextrose (Dextrose 50%-Water Syringe) 12.5 gm PRN Q15MIN PRN IV SEE COMMENTS; Start 09/05/21 at 08:45 Sodium Chloride 1,000 ml @ 100 mls/hr Q10H IV ; Start 09/05/21 at 09:30 Acetaminophen (Tylenol) 650 mg PRN Q4HRS PRN PO TEMP OVER 100.4F OR MILD PAIN; Start 09/05/21 at 08:45 Lorazepam (Ativan) 0.5 mg PRN Q6HRS PRN PO ANXIETY / AGITATION; Start 09/05/21 at 08:45 Lorazepam (Ativan Inj) 0.25 mg PRN Q4HRS PRN IV ANXIETY / AGITATION; Start 09/05/21 at 08:45 Piperacillin Sod/ Tazobactam Sod 3.375 gm/Sodium Chloride 50 ml @ 100 mls/hr Q6HRS IV Last administered on 09/05/21at 11:21; Start 09/05/21 at 12:00 Enoxaparin Sodium (Lovenox 40mg Syringe) 40 mg Q24H SQ Last administered on 09/05/21at 11:22; Start 09/05/21 at 10:00 Oxycodone/ Acetaminophen (Percocet 5/325) 1 tab PRN Q4HRS PRN PO MILD PAIN, 1ST CHOICE; Start 09/05/21 at 08:45 Oxycodone/ Acetaminophen (Percocet 5/325) 2 tab PRN Q4HRS PRN PO MODERATE PAIN, SEVERE PAIN; Start 09/05/21 at 08:45 Morphine Sulfate (Morphine Sulfate) 1 mg PRN Q1HR PRN IV PAIN; Start 09/05/21 at 08:45 Morphine Sulfate (Morphine Sulfate) 2 mg PRN Q2HR PRN IVP SEVERE PAIN 7-10 Last administered on 09/05/21at 11:30; Start 09/05/21 at 08:45; Stop 09/06/21 at 08:44 Prochlorperazine Edisylate (Compazine) 10 mg PRN Q6HRS PRN IV NAUSEA/VOMITING, 2nd CHOICE; Start 09/05/21 at 08:45 Diphenhydramine HCl (Benadryl) 25 mg PRN Q6HRS PRN IVP ITCHING; Start 09/05/21 at 08:45 Diphenhydramine HCl (Benadryl) 25 mg PRN Q6HRS PRN PO ITCHING; Start 09/05/21 at 08:45 Diphenhydramine HCl (Benadryl) 25 mg PRN QHS PRN PO INSOMNIA, 1st CHOICE; Sta rt 09/05/21 at 08:45 Zolpidem Tartrate (Ambien) 2.5 mg PRN QHS PRN PO INSOMNIA, 2nd CHOICE; Start 09/05/21 at 08:45 Lactobacillus Rhamnosus (Culturelle) 1 cap BID PO ; Start 09/05/21 at 21:00 Active Scripts Active Reported Nitroglycerin 0.3 Mg Tab.subl 0.3 Mg SL PRN Q5MIN Allergies Allergies: Coded Allergies: No Known Drug Allergies (Unverified , 04/18/21) ROS General: No: Chills, Night Sweats, Fatigue, Malaise, Appetite, Other PSYCHOLOGICAL ROS: No: Anxiety, Behavioral Disorder, Concentration difficultie, Decreased libido, Depression, Disorientation, Hallucinations, Hostility, Irritablity, Memory difficulties, Mood Swings, Obsessive thoughts, Physical abuse, Sexual abuse, Sleep disturbances, Suicidal ideation, Other Eyes: No Blurry vision, No Decreased vision, No Double vision, No Dry eyes, No Excessive tearing, No Eye Pain, No Itchy Eyes, No Loss of vision, No Photophobia, No Scotomata, No Uses contacts, No Uses glasses, No Other ALLERGY AND IMMUNOLOGY: No: Hives, Insect Bite Sensitivity, Itchy/Watery Eyes, Nasal Congestion, Post Nasal Drip, Seasonal Allergies, Other Hematological and Lymphatic: No: Bleeding Problems, Blood Clots, Blood Transfusions, Brusing, Night Sweats, Pallor, Swollen Lymph Nodes, Other ENDOCRINE: No: Breast Changes, Galactorrhea, Hair Pattern Changes, Hot Flashes, Malaise/lethargy, Mood Swings, Palpitations, Polydipsia/polyuria, Skin Changes, Temperature Intolerance, Unexpected Weight Changes, Other Respiratory: No: Cough, Hemoptysis, Orthopnea, Pleuritic Pain, Shortness of breath, SOB with excertion, Sputum Changes, Stridor, Tachypnea, Wheezing, Other Cardiovascular: No Chest Pain, No Palpitations, No Orthopnea, No Paroxysmal Noc. Dyspnea, No Edema, No Lt Headedness, No Other Gastrointestinal: Yes Nausea, Yes Abdominal Pain Genitourinary: No Dysuria, No Frequency, No Incontinence, No Hematuria, No Retention, No Discharge, No Urgency, No Pain, No Flank Pain, No Other, No , No , No , No , No , No , No Musculoskeletal: No Gait Disturbance, No Joint Pain, No Joint Stiffness, No Joint Swelling, No Muscle Pain, No Muscular Weakness, No Pain In:, No Swelling In:, No Other Neurological: No Behavorial Changes, No Bowel/Bladder ControlChng, No Confusion, No Dizziness, No Gait Disturbance, No Headaches, No Impaired Coord/balance, No Memory Loss, No Numbness/Tingling, No Seizures, No Speech Problems, No Tremors, No Visual Changes, No Weakness, No Other Skin: No Dry Skin, No Eczema, No Hair Changes, No Lumps, No Mole Changes, No Mottling, No Nail Changes, No Pruritus, No Rash, No Skin Lesion Changes, No Other, No Acne Physical Exam General: Alert, Oriented X3, Cooperative HEENT: Atraumatic Lungs: Clear to auscultation Abdomen: Soft (mildly tender RUQ with palpation) Extremities: No clubbing, No cyanosis Skin: No breakdown Neuro: Normal speech Vitals VITALS Vital Signs Date Time Temp Pulse Resp B/P (MAP) Pulse Ox O2 Delivery O2 Flow Rate FiO2 4/20/22 11:30 Room Air 09/05/21 11:00 97.7 65 18 109/62 (78) 100 97.7 Labs Labs Laboratory Tests Test 09/04/21 23:45 White Blood Count 9.0 x10^3/uL (4.0-11.0) Red Blood Count 4.88 x10^6/uL (3.50-5.40) Hemoglobin 13.3 g/dL (12.0-15.5) Hematocrit 38.7 % (36.0-47.0) Mean Corpuscular Volume 79 fL (79-100) Mean Corpuscular Hemoglobin 27 pg (25-35) Mean Corpuscular Hemoglobin Concent 34 g/dL (31-37) Red Cell Distribution Width 15.1 % (11.5-14.5) Platelet Count 266 x10^3/uL (140-400) Neutrophils (%) (Auto) 62 % (31-73) Lymphocytes (%) (Auto) 25 % (24-48) Monocytes (%) (Auto) 7 % (0-9) Eosinophils (%) (Auto) 5 % (0-3) Basophils (%) (Auto) 1 % (0-3) Neutrophils # (Auto) 5.6 x10^3/uL (1.8-7.7) Lymphocytes # (Auto) 2.3 x10^3/uL (1.0-4.8) Monocytes # (Auto) 0.6 x10^3/uL (0.0-1.1) Eosinophils # (Auto) 0.4 x10^3/uL (0.0-0.7) Basophils # (Auto) 0.1 x10^3/uL (0.0-0.2) Sodium Level 137 mmol/L (136-145) Potassium Level 3.7 mmol/L (3.5-5.1) Chloride Level 103 mmol/L (98-107) Carbon Dioxide Level 26 mmol/L (21-32) Anion Gap 8 (6-14) Blood Urea Nitrogen 17 mg/dL (7-20) Creatinine 0.8 mg/dL (0.6-1.0) Estimated GFR (Cockcroft-Gault) 97.1 BUN/Creatinine Ratio 21 (6-20) Glucose Level 121 mg/dL (70-99) Calcium Level 8.8 mg/dL (8.5-10.1) Total Bilirubin 0.2 mg/dL (0.2-1.0) Aspartate Amino Transf (AST/SGOT) 14 U/L (15-37) Alanine Aminotransferase (ALT/SGPT) 21 U/L (14-59) Alkaline Phosphatase 103 U/L (46-116) Total Protein 8.0 g/dL (6.4-8.2) Albumin 3.3 g/dL (3.4-5.0) Albumin/Globulin Ratio 0.7 (1.0-1.7) Lipase 121 U/L (73-393) Ethyl Alcohol Level < 10 mg/dL (0-10) Laboratory Tests Test 09/04/21 23:45 White Blood Count 9.0 x10^3/uL (4.0-11.0) Red Blood Count 4.88 x10^6/uL (3.50-5.40) Hemoglobin 13.3 g/dL (12.0-15.5) Hematocrit 38.7 % (36.0-47.0) Mean Corpuscular Volume 79 fL (79-100) Mean Corpuscular Hemoglobin 27 pg (25-35) Mean Corpuscular Hemoglobin Concent 34 g/dL (31-37) Red Cell Distribution Width 15.1 % (11.5-14.5) Platelet Count 266 x10^3/uL (140-400) Neutrophils (%) (Auto) 62 % (31-73) Lymphocytes (%) (Auto) 25 % (24-48) Monocytes (%) (Auto) 7 % (0-9) Eosinophils (%) (Auto) 5 % (0-3) Basophils (%) (Auto) 1 % (0-3) Neutrophils # (Auto) 5.6 x10^3/uL (1.8-7.7) Lymphocytes # (Auto) 2.3 x10^3/uL (1.0-4.8) Monocytes # (Auto) 0.6 x10^3/uL (0.0-1.1) Eosinophils # (Auto) 0.4 x10^3/uL (0.0-0.7) Basophils # (Auto) 0.1 x10^3/uL (0.0-0.2) Sodium Level 137 mmol/L (136-145) Potassium Level 3.7 mmol/L (3.5-5.1) Chloride Level 103 mmol/L (98-107) Carbon Dioxide Level 26 mmol/L (21-32) Anion Gap 8 (6-14) Blood Urea Nitrogen 17 mg/dL (7-20) Creatinine 0.8 mg/dL (0.6-1.0) Estimated GFR (Cockcroft-Gault) 97.1 BUN/Creatinine Ratio 21 (6-20) Glucose Level 121 mg/dL (70-99) Calcium Level 8.8 mg/dL (8.5-10.1) Total Bilirubin 0.2 mg/dL (0.2-1.0) Aspartate Amino Transf (AST/SGOT) 14 U/L (15-37) Alanine Aminotransferase (ALT/SGPT) 21 U/L (14-59) Alkaline Phosphatase 103 U/L (46-116) Total Protein 8.0 g/dL (6.4-8.2) Albumin 3.3 g/dL (3.4-5.0) Albumin/Globulin Ratio 0.7 (1.0-1.7) Lipase 121 U/L (73-393) Ethyl Alcohol Level < 10 mg/dL (0-10) Assessment/Plan Assessment/Plan 36 year old female with abdominal pain, suspect calculous cholecystitis. Recommend lap beatriz; the details and risks of surgery were discussed. She understands and would like to proceed. Planned for AM 09/06/21 ANUJA VITAL MD Sep 05, 2021 12:58
[2021-09-05 15:00] VITALS: BP 111/66
[2021-09-05] MEDS: IV NORMAL SALINE 1000ML BAG 1,000 ML IV SCH (15:49)
[2021-09-05 19:00] VITALS: BP 115/46
[2021-09-05] MEDS: LACTOBACILLUS RHAMNOSUS GG 1 CAPSULE. PO SCH (21:05)
[2021-09-05] MEDS: oxyCODONE/APAP 5/325 1 TAB TABLET PO PRN (21:27)
[2021-09-05 23:00] VITALS: BP 96/46
[2021-09-06] VITALS (9 sets, daily range): BP systolic 113–174; BP diastolic 61–99
[2021-09-06] MEDS: PIPERACILLIN/TAZOBACTAM 3.375 GM in IV NORMAL SALINE 50ML 50 ML IV SCH ×4 (00:28→17:01)
[2021-09-06] MEDS: IV NORMAL SALINE 1000ML BAG 1,000 ML IV SCH ×3 (02:37→22:29)
[2021-09-06 03:17] LABS: BARBITURATES NEG (NEG); BENZODIAZEPINES NEG (NEG); CANNABINOIDS POS (NEG); COCAINE NEG (NEG); METHADONE NEG (NEG); OPIATES POS (NEG); PHENCYCLIDINE NEG (NEG)
[2021-09-06 03:19] LABS: BACTERIA,URINE 0 /HPF (0-FEW); RBC,URINE 0 /HPF (0-2); WBC,URINE 0 /HPF (0-4)
[2021-09-06 03:20] LABS: AMPHETAMINE/METHAMPHETAMINE NEG (NEG)
[2021-09-06 05:36] LABS: BASO % 1 % (0-3); EOS # 0.5 x10^3/uL (0.0-0.7); EOS % 8 % (0-3); HEMATOCRIT 37.2 % (36.0-47.0); HEMOGLOBIN 12.5 g/dL (12.0-15.5); LYMPH # 2.6 x10^3/uL (1.0-4.8); LYMPH % 44 % (24-48); MEAN CORPUSCULAR HEMOGLOBIN 27 pg (25-35); MEAN CORPUSCULAR HGB CONC 34 g/dL (31-37); MEAN CORPUSCULAR VOLUME 80 fL (79-100); MONO # 0.4 x10^3/uL (0.0-1.1); MONO % 7 % (0-9); NEUT # 2.3 x10^3/uL (1.8-7.7); NEUT % 39 % (31-73); PLATELET COUNT 223 x10^3/uL (140-400); RED BLOOD COUNT 4.65 x10^6/uL (3.50-5.40); RED CELL DISTRIBUTION WIDTH 15.3 % (11.5-14.5); WHITE BLOOD COUNT 5.9 x10^3/uL (4.0-11.0)
[2021-09-06] MEDS ORDERED: HYDROmorphone 2 MG/ML INJ. IVP PRN (06:00)
[2021-09-06] MEDS ORDERED: IV RINGERS,LACTATED 1000ML 1,000 ML IV SCH (06:00)
[2021-09-06] MEDS ORDERED: MORPHINE SULFATE 2 MG/ML INJ. IVP PRN (06:00)
[2021-09-06] MEDS ORDERED: PROCHLORPERAZINE 10 MG/2 ML VIAL. IVP PRN (06:00)
[2021-09-06] MEDS ORDERED: fentaNYL PF VIAL 100 MCG/2 ML VIAL IVP PRN (06:00)
[2021-09-06 06:25] LABS: ALBUMIN 2.8 g/dL (3.4-5.0); ALBUMIN/GLOBULIN RATIO 0.8 (1.0-1.7); CALCIUM 8.1 mg/dL (8.5-10.1); CREATININE 0.8 mg/dL (0.6-1.0); GFR 97.1; MAGNESIUM 1.8 mg/dL (1.8-2.4); PHOSPHORUS 3.3 mg/dL (2.6-4.7); POTASSIUM 3.6 mmol/L (3.5-5.1); TOTAL BILIRUBIN 0.4 mg/dL (0.2-1.0); TOTAL PROTEIN 6.5 g/dL (6.4-8.2)
--- NOTE | 2021-09-06 06:40 | NUR ---
Patient has remained NPO, Patient leaving floor for surgery.
[2021-09-06] MEDS ORDERED: DEXAMETHASONE SOD PHOS 4 MG/ML VIAL ONE (06:47)
[2021-09-06] MEDS ORDERED: SEVOFLURANE 31 TO 60 MINUTES. IH ONE (06:47)
[2021-09-06] MEDS ORDERED: ONDANSETRON PF 4 MG/2 ML VIAL. ONE (06:47)
[2021-09-06] MEDS ORDERED: LIDOCAINE 2% PF 5 ML VIAL. ONE (06:47)
[2021-09-06] MEDS ORDERED: PROPOFOL 10 MG/ML (20ML) VIAL. IV ONE (06:47)
[2021-09-06] MEDS ORDERED: fentaNYL PF VIAL 100 MCG/2 ML VIAL ONE ×2 (06:48→09:22)
[2021-09-06] MEDS ORDERED: MIDAZOLAM HCL/PF 2 MG/2 ML VIAL. ONE (06:48)
[2021-09-06] MEDS ORDERED: KETAMINE HCL IN NACL, ISO-OSM 50 MG/5 ML SYRINGE ONE (06:52)
[2021-09-06] MEDS ORDERED: BUPIVACAINE-EPI 0.5% 30 ML VIAL KIT. ONE (06:57)
[2021-09-06] MEDS ORDERED: IOHEXOL 300 MG/ML 50 ML VIAL. ONE (06:57)
[2021-09-06] MEDS ORDERED: SURGICEL HEMOSTAT 4X8 EACH. ONE (06:57)
[2021-09-06] MEDS ORDERED: SUGAMMADEX SODIUM 200 MG/2 ML VIAL. IVP ONE (07:30)
[2021-09-06] MEDS ORDERED: KETOROLAC 30 MG/ML VIAL. ONE (08:26)
--- NOTE | 2021-09-06 08:27 | RAD ---
Interoperative Cholangiogram: Technique: Contrast is introduced into the cystic duct during the performance of a laparoscopic chol ecystectomy and spot views were obtained on a portable C-arm for an intraoperative cholangiogram. Total fluoroscopic time: 14 seconds Total fluoroscopic spot images: 2 Findings: The central biliary tree is visualized and appears normal. No filling defects are seen. Contrast is s een in the duodenum. Impression: No evidence of a retained stone. Electronically signed by: Frantz Tijerina MD (09/06/2021 8:24 AM) [facility]
--- NOTE | 2021-09-06 08:41 | PDOC4 ---
Operative Note Operative Note Operative Note: Preoperative Diagnosis: Calculus cholecystitis Postoperative Diagnosis: Same Procedure: Laparoscopic cholecystectomy with intraoperative cholangiogram Surgeons: Darrel Lieutenant/Deputy: Jaxon Alonso MS 3 Anesthesia: Gen. Estimated Blood Loss: 10 mL Specimen: Gallbladder to pathology Drains: None Complications: None Indications: The patient is a 36-year-old female who was admitted with calculus cholecystitis. Surgical treatment was offered by means of a laparoscopic cholecystectomy. The risks of surgery were discussed which include bleeding, infection, bile duct injury, bile leak, pain, the potential for additional surgeries or procedures. The patient understands and would like to proceed. Description: The patient was taken to the operating room and laid supine on the operating table. General anesthesia was performed. The abdomen was prepped with ChloraPrep and draped in a standard surgical fashion. A small incision was made the patient's right abdomen through which a visualized 5 mm trocar was inserted. A pneumoperitoneum was created and the laparoscope was introduced. In the upper midabdomen an 11 mm trocar was inserted and in the right upper quadrant two 2.3 mm mini lap graspers were inserted. The gallbladder was retracted cephalad. The cystic duct was dissected free from surrounding tissues. One clip was placed on the duct near the gallbladder junction. An opening was made in the duct and a cholangiocatheter placed within and secured with a clip. Using contrast dye and fluoroscopy an intraoperative cholangiogram was performed that appeared unremarkable. The clip and catheter were then withdrawn. Three clips were placed on the cystic duct and it was divided. The cystic artery was then identified, dissected free, doubly clipped and divided as well. The gallbladder was then mobilized away from the liver with cautery. The umbilical 5 millimeter trocar was exchanged for an 11 millimeter trocar. The gallbladder was then placed in an endoscopic bag and extracted at the umbilical trocar site. The fascia there was closed with an 0 Vicryl suture and infiltrated with 0.5% marcaine. All blood and irrigation fluid was suctioned and hemostasis was good. The remaining ports were removed and the pneumoperitoneum was relieved. The skin incisions were closed using 4-0 Monocryl suture. Steri-Strips and dressings were then applied. The patient tolerated the procedure well and was sent to the recovery room in stable condition. At the end of the case all counts were correct. ANUJA VITAL MD Sep 06, 2021 08:41
[2021-09-06] MEDS ORDERED: oxyCODONE/APAP 5/325 1 TAB TABLET PO PRN ×2 (08:45→09:00)
[2021-09-06] MEDS: LACTOBACILLUS RHAMNOSUS GG 1 CAPSULE. PO SCH ×2 (09:00→21:32)
[2021-09-06] MEDS ORDERED: PROCHLORPERAZINE 10 MG/2 ML VIAL. ONE (09:22)
[2021-09-06] MEDS: fentaNYL PF VIAL 100 MCG/2 ML VIAL IVP PRN ×2 (09:28→09:52)
[2021-09-06] MEDS ORDERED: MORPHINE SULFATE 2 MG/ML INJ. ONE (09:49)
[2021-09-06] MEDS: MORPHINE SULFATE 2 MG/ML INJ. IV PRN ×2 (09:52→10:08)
[2021-09-06] MEDS: ENOXAPARIN 40 MG/0.4 ML SYRINGE. SQ SCH (10:00)
[2021-09-06] MEDS: oxyCODONE/APAP 5/325 1 TAB TABLET PO PRN ×3 (11:00→21:31)
--- NOTE | 2021-09-06 11:20 | PDOC ---
[employer] PROGRESS NOTE Date of Service DOS: DATE: 09/06/21 TIME: 11:19 Chief Complaint Chief Complaint Assessment/Plan Acute abdominal pain secondary to acute cholecystitis Morbid obesity Admit to hospitalist service for further management General surgery consult NPO Continue IV fluids Continue IV antibiotics Lovenox for DVT prophylaxis Protonix GI prophylaxis ADA diet CODE STATUS full code Discussed with RN and SW Disposition inpatient management as above DPOA: Mother History of Present Illness History of Present Illness 36 year old female with a history of gallstones presenting to the ED today complaining of moderate epigastric abdominal pain, symptoms have been going on since this evening. Patient denies any nausea, vomiting, diarrhea. States the pain has been constant since onset. Denies any fever 09/06/2021 No acute events overnight. Patient seen examined bedside. No concerns from nu rsing at this time plan for surgery today. Patient's chart, labs, images were reviewed and discussed with RN Vitals/I&O Vitals/I&O: Vital Signs Date Time Temp Pulse Resp B/P (MAP) Pulse Ox O2 Delivery O2 Flow Rate FiO2 09/06/21 10:17 76 13 130/73 95 Nasal Cannula 2.0 09/06/21 10:02 97.3 97.3 I & O 0 09/05/21 09/05/21 09/06/21 15:00 23:00 07:00 Intake Total 50 ml 1290 ml Balance 50 ml 1290 ml Physical Exam General: Alert, Oriented X3, Cooperative Abdomen: Soft Extremities: No clubbing, No cyanosis Skin: No breakdown Labs Labs: Laboratory Tests Test 09/05/21 12:25 09/06/21 03:03 09/06/21 03:50 SARS-CoV-2 Antigen (Rapid) Negative (NEGATIVE) Urine Collection Type Unknown Urine Color (Auto) Light yellow Urine Turbidity Clear Urine pH (Auto) 5.5 (<5.0-8.0) Urine Specific [place] 1.012 (1.000-1.030) Urine Protein (Auto) Negative mg/dL (Negative) Urine Glucose (Auto)(UA) Negative mg/dL (Negative) Urine Ketones (Auto) Negative mg/dL (Negative) Urine Blood (Auto) Negative (Negative) Urine Nitrite Negative (Negative) Urine Bilirubin (Auto) Negative (Negative) Urine Urobilinogen (Auto) Normal mg/dL (Normal) Urine Leukocyte Esterase (Auto) Negative (Negative) Urine RBC 0 /HPF (0-2) Urine WBC 0 /HPF (0-4) Urine Squamous Epithelial Cells Few /LPF Urine Bacteria 0 /HPF (0-FEW) Urine Mucus Slight /LPF Urine Opiates Screen Pos (NEG) Urine Methadone Screen Neg (NEG) Urine Barbiturates Neg (NEG) Urine Phencyclidine Screen Neg (NEG) Urine Amphetamine/Methamphetamine Neg (NEG) Urine Benzodiazepines Screen Neg (NEG) Urine Cocaine Screen Neg (NEG) Urine Cannabinoids Screen Pos (NEG) Urine Ethyl Alcohol Neg (NEG) White Blood Count 5.9 x10^3/uL (4.0-11.0) Red Blood Count 4.65 x10^6/uL (3.50-5.40) Hemoglobin 12.5 g/dL (12.0-15.5) Hematocrit 37.2 % (36.0-47.0) Mean Corpuscular Volume 80 fL (79-100) Mean Corpuscular Hemoglobin 27 pg (25-35) Mean Corpuscular Hemoglobin Concent 34 g/dL (31-37) Red Cell Distribution Width 15.3 % (11.5-14.5) Platelet Count 223 x10^3/uL (140-400) Neutrophils (%) (Auto) 39 % (31-73) Lymphocytes (%) (Auto) 44 % (24-48) Monocytes (%) (Auto) 7 % (0-9) Eosinophils (%) (Auto) 8 % (0-3) Basophils (%) (Auto) 1 % (0-3) Neutrophils # (Auto) 2.3 x10^3/uL (1.8-7.7) Lymphocytes # (Auto) 2.6 x10^3/uL (1.0-4.8) Monocytes # (Auto) 0.4 x10^3/uL (0.0-1.1) Eosinophils # (Auto) 0.5 x10^3/uL (0.0-0.7) Basophils # (Auto) 0.0 x10^3/uL (0.0-0.2) Sodium Level 141 mmol/L (136-145) Potassium Level 3.6 mmol/L (3.5-5.1) Chloride Level 107 mmol/L (98-107) Carbon Dioxide Level 26 mmol/L (21-32) Anion Gap 8 (6-14) Blood Urea Nitrogen 7 mg/dL (7-20) Creatinine 0.8 mg/dL (0.6-1.0) Estimated GFR (Cockcroft-Gault) 97.1 BUN/Creatinine Ratio 9 (6-20) Glucose Level 80 mg/dL (70-99) Calcium Level 8.1 mg/dL (8.5-10.1) Phosphorus Level 3.3 mg/dL (2.6-4.7) Magnesium Level 1.8 mg/dL (1.8-2.4) Total Bilirubin 0.4 mg/dL (0.2-1.0) Aspartate Amino Transf (AST/SGOT) 11 U/L (15-37) Alanine Aminotransferase (ALT/SGPT) 15 U/L (14-59) Alkaline Phosphatase 64 U/L (46-116) Total Protein 6.5 g/dL (6.4-8.2) Albumin 2.8 g/dL (3.4-5.0) Albumin/Globulin Ratio 0.8 (1.0-1.7) Comment Review of Relevant I have reviewed the following items doyle (where applicable) has been applied. Medications: Current Medications Medications (Trade) Dose Ordered Sig/Jorge Alberto Route PRN Reason Start Time Stop Time Status Last Admin Dose Admin Piperacillin Sod/ Tazobactam Sod 3.375 gm/Sodium Chloride 50 ml @ 100 mls/hr Q6HRS IV 09/05/21 12:00 09/06/21 05:34 Lactobacillus Rhamnosus (Culturelle) 1 cap BID PO 09/05/21 21:00 09/05/21 21:05 Fentanyl Citrate (Fentanyl 2ml Vial) 50 mcg PRN Q5MIN PRN IVP MODERATE PAIN 4-6 09/06/21 06:00 09/07/21 05:59 09/06/21 09:52 Prochlorperazine Edisylate (Compazine) 5 mg PACU PRN PRN IVP NAUSEA, MRX1 09/06/21 06:00 09/07/21 05:59 09/06/21 09:28 Bupivacaine HCl/ Epinephrine Bitart (Sensorcain-Epi 0.5% Kit) 30 ml STK-MED ONCE .ROUTE 09/06/21 06:57 09/06/21 06:57 DC 09/06/21 08:00 Iohexol (Omnipaque 300 Mg/ml) 50 ml STK-MED ONCE .ROUTE 09/06/21 06:57 09/06/21 06:57 DC 09/06/21 08:15 Justifications for Admission Other Justification Acute cholecystitis ENRIQUETA AUGUSTIN MD Sep 06, 2021 11:20
[2021-09-07] MEDS: PIPERACILLIN/TAZOBACTAM 3.375 GM in IV NORMAL SALINE 50ML 50 ML IV SCH ×2 (00:04→06:33)
[2021-09-07] MEDS: oxyCODONE/APAP 5/325 1 TAB TABLET PO PRN ×3 (01:36→11:41)
[2021-09-07 03:00] VITALS: BP 112/61
[2021-09-07 05:53] LABS: BASO % 0 % (0-3); EOS % 1 % (0-3); HEMATOCRIT 37.5 % (36.0-47.0); HEMOGLOBIN 12.6 g/dL (12.0-15.5); LYMPH # 2.3 x10^3/uL (1.0-4.8); LYMPH % 23 % (24-48); MEAN CORPUSCULAR HEMOGLOBIN 27 pg (25-35); MEAN CORPUSCULAR HGB CONC 34 g/dL (31-37); MEAN CORPUSCULAR VOLUME 80 fL (79-100); MONO # 0.6 x10^3/uL (0.0-1.1); MONO % 6 % (0-9); NEUT % 70 % (31-73); PLATELET COUNT 260 x10^3/uL (140-400); RED BLOOD COUNT 4.67 x10^6/uL (3.50-5.40); RED CELL DISTRIBUTION WIDTH 14.9 % (11.5-14.5)
[2021-09-07 06:04] LABS: CALCIUM 8.9 mg/dL (8.5-10.1); CREATININE 0.8 mg/dL (0.6-1.0); GFR 97.1; MAGNESIUM 1.9 mg/dL (1.8-2.4); POTASSIUM 3.3 mmol/L (3.5-5.1)
[2021-09-07 07:00] VITALS: BP 116/64
[2021-09-07] MEDS: LACTOBACILLUS RHAMNOSUS GG 1 CAPSULE. PO SCH (07:55)
[2021-09-07] MEDS ORDERED: OXYC1TAB15 PO (09:33)
--- NOTE | 2021-09-07 09:37 | PDOC3 ---
Discharge Summary Visit Information Date of Admission: Sep 05, 2021 Date of Discharge: Sep 07, 2021 Final Diagnosis Acute abdominal pain acute calculus cholecystitis obesity, BMI 39 Brief Hospital Course Allergies Allergies Coded Allergies Type Severity Reaction Last Updated Verified No Known Drug Allergies 04/18/21 No Vital Signs Vital Signs Date Time Temp Pulse Resp B/P (MAP) Pulse Ox O2 Delivery O2 Flow Rate FiO2 09/07/21 07:00 98.4 58 14 116/64 (81) 97 Room Air 98.4 09/06/21 12:15 2.0 Lab Results Laboratory Tests Test 09/05/21 12:25 09/06/21 03:03 09/06/21 03:50 09/07/21 04:30 SARS-CoV-2 Antigen (Rapid) Negative (NEGATIVE) Urine Collection Type Unknown Urine Color (Auto) Light yellow Urine Turbidity Clear Urine pH (Auto) 5.5 (<5.0-8.0) Urine Specific [place] 1.012 (1.000-1.030) Urine Protein (Auto) Negative mg/dL (Negative) Urine Glucose (Auto)(UA) Negative mg/dL (Negative) Urine Ketones (Auto) Negative mg/dL (Negative) Urine Blood (Auto) Negative (Negative) Urine Nitrite Negative (Negative) Urine Bilirubin (Auto) Negative (Negative) Urine Urobilinogen (Auto) Normal mg/dL (Normal) Urine Leukocyte Esterase (Auto) Negative (Negative) Urine RBC 0 /HPF (0-2) Urine WBC 0 /HPF (0-4) Urine Squamous Epithelial Cells Few /LPF Urine Bacteria 0 /HPF (0-FEW) Urine Mucus Slight /LPF Urine Opiates Screen Pos (NEG) Urine Methadone Screen Neg (NEG) Urine Barbiturates Neg (NEG) Urine Phencyclidine Screen Neg (NEG) Urine Amphetamine/Methamphetamine Neg (NEG) Urine Benzodiazepines Screen Neg (NEG) Urine Cocaine Screen Neg (NEG) Urine Cannabinoids Screen Pos (NEG) Urine Ethyl Alcohol Neg (NEG) White Blood Count 5.9 x10^3/uL (4.0-11.0) 10.0 x10^3/uL (4.0-11.0) Red Blood Count 4.65 x10^6/uL (3.50-5.40) 4.67 x10^6/uL (3.50-5.40) Hemoglobin 12.5 g/dL (12.0-15.5) 12.6 g/dL (12.0-15.5) Hematocrit 37.2 % (36.0-47.0) 37.5 % (36.0-47.0) Mean Corpuscular Volume 80 fL (79-100) 80 fL (79-100) Mean Corpuscular Hemoglobin 27 pg (25-35) 27 pg (25-35) Mean Corpuscular Hemoglobin Concent 34 g/dL (31-37) 34 g/dL (31-37) Red Cell Distribution Width 15.3 % (11.5-14.5) 14.9 % (11.5-14.5) Platelet Count 223 x10^3/uL (140-400) 260 x10^3/uL (140-400) Neutrophils (%) (Auto) 39 % (31-73) 70 % (31-73) Lymphocytes (%) (Auto) 44 % (24-48) 23 % (24-48) Monocytes (%) (Auto) 7 % (0-9) 6 % (0-9) Eosinophils (%) (Auto) 8 % (0-3) 1 % (0-3) Basophils (%) (Auto) 1 % (0-3) 0 % (0-3) Neutrophils # (Auto) 2.3 x10^3/uL (1.8-7.7) 7.0 x10^3/uL (1.8-7.7) Lymphocytes # (Auto) 2.6 x10^3/uL (1.0-4.8) 2.3 x10^3/uL (1.0-4.8) Monocytes # (Auto) 0.4 x10^3/uL (0.0-1.1) 0.6 x10^3/uL (0.0-1.1) Eosinophils # (Auto) 0.5 x10^3/uL (0.0-0.7) 0.0 x10^3/uL (0.0-0.7) Basophils # (Auto) 0.0 x10^3/uL (0.0-0.2) 0.0 x10^3/uL (0.0-0.2) Sodium Level 141 mmol/L (136-145) 139 mmol/L (136-145) Potassium Level 3.6 mmol/L (3.5-5.1) 3.3 mmol/L (3.5-5.1) Chloride Level 107 mmol/L (98-107) 105 mmol/L (98-107) Carbon Dioxide Level 26 mmol/L (21-32) 27 mmol/L (21-32) Anion Gap 8 (6-14) 7 (6-14) Blood Urea Nitrogen 7 mg/dL (7-20) 5 mg/dL (7-20) Creatinine 0.8 mg/dL (0.6-1.0) 0.8 mg/dL (0.6-1.0) Estimated GFR (Cockcroft-Gault) 97.1 97.1 BUN/Creatinine Ratio 9 (6-20) Glucose Level 80 mg/dL (70-99) 104 mg/dL (70-99) Calcium Level 8.1 mg/dL (8.5-10.1) 8.9 mg/dL (8.5-10.1) Phosphorus Level 3.3 mg/dL (2.6-4.7) Magnesium Level 1.8 mg/dL (1.8-2.4) 1.9 mg/dL (1.8-2.4) Total Bilirubin 0.4 mg/dL (0.2-1.0) Aspartate Amino Transf (AST/SGOT) 11 U/L (15-37) Alanine Aminotransferase (ALT/SGPT) 15 U/L (14-59) Alkaline Phosphatase 64 U/L (46-116) Total Protein 6.5 g/dL (6.4-8.2) Albumin 2.8 g/dL (3.4-5.0) Albumin/Globulin Ratio 0.8 (1.0-1.7) Laboratory Tests Test 09/07/21 04:30 White Blood Count 10.0 x10^3/uL (4.0-11.0) Red Blood Count 4.67 x10^6/uL (3.50-5.40) Hemoglobin 12.6 g/dL (12.0-15.5) Hematocrit 37.5 % (36.0-47.0) Mean Corpuscular Volume 80 fL (79-100) Mean Corpuscular Hemoglobin 27 pg (25-35) Mean Corpuscular Hemoglobin Concent 34 g/dL (31-37) Red Cell Distribution Width 14.9 % (11.5-14.5) Platelet Count 260 x10^3/uL (140-400) Neutrophils (%) (Auto) 70 % (31-73) Lymphocytes (%) (Auto) 23 % (24-48) Monocytes (%) (Auto) 6 % (0-9) Eosinophils (%) (Auto) 1 % (0-3) Basophils (%) (Auto) 0 % (0-3) Neutrophils # (Auto) 7.0 x10^3/uL (1.8-7.7) Lymphocytes # (Auto) 2.3 x10^3/uL (1.0-4.8) Monocytes # (Auto) 0.6 x10^3/uL (0.0-1.1) Eosinophils # (Auto) 0.0 x10^3/uL (0.0-0.7) Basophils # (Auto) 0.0 x10^3/uL (0.0-0.2) Sodium Level 139 mmol/L (136-145) Potassium Level 3.3 mmol/L (3.5-5.1) Chloride Level 105 mmol/L (98-107) Carbon Dioxide Level 27 mmol/L (21-32) Anion Gap 7 (6-14) Blood Urea Nitrogen 5 mg/dL (7-20) Creatinine 0.8 mg/dL (0.6-1.0) Estimated GFR (Cockcroft-Gault) 97.1 Glucose Level 104 mg/dL (70-99) Calcium Level 8.9 mg/dL (8.5-10.1) Magnesium Level 1.9 mg/dL (1.8-2.4) Brief Hospital Course Ms. Cabral is a 36 old female, with history of gallstones, admit for worsening abd pain, taken to OR on 09/06, surg went well, Laparoscopic cholecystectomy with intraoperative cholangiogram by Dr. Rojo on 09/07 pain better, soreness post-op DC home Discharge Information Condition at Discharge: Improved Follow Up: Weeks Disposition/Orders: D/C to Home Scheduled Nitroglycerin (Nitroglycerin) 0.3 Mg Tab.subl, 0.3 MG SL PRN Q5MIN for chest pain, #3 (Reported) Entered as Reported by: JONELLE OVERTON on 09/05/21529 Last Action: New Order on 09/05/21529 by JONELLE OVERTON Scheduled PRN Oxycodone/Apap 5-325 (Percocet 5-325 Mg Tablet ) 1 Each Tablet, 1 TAB PO PRN Q4HRS PRN for PAIN, #20 Prescribed by: DIANELYS MARTINEZ on 09/07/21 0934 Patient Instructions Patient Instructions pt seen face to face under 30 min Justicifation of Admission Dx: Justifications for Admission: Justification of Admission Dx: N/A DIANELYS MARTINEZ MD Sep 07, 2021 09:37
[2021-09-07] MEDS ORDERED: POTASSIUM CHLORIDE 20 MEQ TABLET.ER. PO ONE (10:00)
[2021-09-07 11:00] VITALS: BP 120/66
--- NOTE | 2021-09-07 15:31 | NUR ---
Pt. currently in surgery, elopement risk assessment unable to be completed at this time. Addendum: 09/07/21 at 1558 by SANDEEP GONZALEZ RN Charted on the incorrect patient.
--- NOTE | 2021-09-07 18:07 | PATHOLOGY ---
[facility] Accession Number: [id number] . 01 Material submitted: . gallbladder - GALLBLADDER AND CONTENTS . 01 Clinical history: . ACUTE CHOLECYSTITIS . 02 Diagnosis: Gallbladder, laparoscopic cholecystectomy: - Cholelithiasis. - Chronic cholecystitis with focally increased eosinophils. - Reactive changes of gallbladder neck lymph node. LBQ 09/07/2021 1624 Local . 02 Comment: There is no evidence of malignancy. (JPM/db; 09/07/2021) . 02 Electronically signed: . Eugenio Klein MD, Pathologist NPI- [id number] . 01 Gross description: . Fixative: Formalin Labeled: Gallbladder and contents Specimen received: Intact gallbladder Dimensions: 10.2 x 4.1 x 3.0 cm Serosa: Green-bansal Lymph node: 0.8 x 0.5 x 0.4 cm Mucosa: Velvety, bile-stained Average wall thickness: 0.1 cm Calculi: A single dark yellow, granular calculus is present Abnormalities: None identified . [employer] body, fundus, cystic duct margin, and bisected lymph node submitted in cassette A1. (CAA; 09/06/2021) QA/[facility] 09/06/2021 1554 Local . 02 Pathologist provided ICD-10: K80.10 . 02 CPT . 832833 Specimen Comment: A courtesy copy of this report has been sent to [phone], [phone] Specimen Comment: [id number] Specimen Comment: Report sent to / DR AUGUSTIN Specimen Comment: A duplicate report has been generated due to demographic updates. Performed at: [address], [place], [place] [id number] MD Dagoberto Magallanes MD Phone: [phone] Performed at: 02 [facility] [address] [place], [place] [id number] MD Eugenio Klein MD Phone: [phone]
== END 2021-09-07 12:25 | disposition home or self-care (01) | DRG 419 ==
LOC: ER 22:35 → 4 NORTH 09-05 01:30
PROVIDERS: ADMIT Internal Medicine; ATTEND Internal Medicine
PROC: 0FT44ZZ Resection of Gallbladder, Percutaneous Endoscopic Approach (ICD-10-PCS; principal; 2021-09-05)
PROC: BF101ZZ Fluoroscopy of Bile Ducts using Low Osmolar Contrast (ICD-10-PCS; 2021-09-05)
DX: K80.00 Calculus of gallbladder with acute cholecystitis without obstruction (principal); E66.01 Morbid (severe) obesity due to excess calories; F17.200 Nicotine dependence, unspecified, uncomplicated; Z68.39 Body mass index [BMI] 39.0-39.9, adult; Z86.16 Personal history of COVID-19; Z90.710 Acquired absence of both cervix and uterus; Z20.822 Contact with and (suspected) exposure to COVID-19
CPT/HCPCS: 36415; 74300; 76705; 80048; 80053; 80307; 81001; 83690; 83735; 84100; 85025; 87426; 88304; 96361; 96374; 96375; 96376; A4213; A4364; A4452; A4657; A4930; A6219; C1887; G0480; J0780; J1100; J1650; J1885; J2250; J2270; J2405; J2543; J2704; J3010; J3490; J7030; Q9967; 99285-25; G0378